=== PATIENT | female | born 1930 | race Hispanic/Latino ===

== ENCOUNTER 2017-05-13 09:44 | Inpatient (IN) | payer MEDICARE ==
[~2017-05-13] VITALS: Ht 152.4 cm; Wt 62.9 kg
[~2017-05-13 09:44] MED LIST: ALPR1TAB7 PO; AMLO5TAB2 PO; CHOL200026 PO; CITA20TA17 PO; ESOM20CA31 PO; GLIP5TAB11 PO; IBUP-2071 PO; LISI-613 PO; METF500T6 PO; METH2.5T6 PO; METO100T14 PO
[2017-05-13] MEDS ORDERED: MORPHINE SULFATE 8 MG/ML VIAL ONE (10:52)
[2017-05-13] MEDS ORDERED: ONDANSETRON HCL 4 MG/2 ML VIAL ONE (10:52)
[2017-05-13 11:36] LABS: BASOPHILS % (AUTO) 0.3 % (0.0-5.0); HEMATOCRIT 36.4 % (36-48); MEAN CORPUSCULAR HEMOGLOBIN 27.8 pg (27.0-33.0); MEAN CORPUSCULAR HGB CONC 32.3 g/dL (32.0-36.0); MONOCYTES % (AUTO) 0.9 % (3.0-13.0); NEUTROPHILS % (AUTO) 90.8 % (40.0-77.0); PLATELET COUNT (AUTO) 186 K/uL (130-400); RED BLOOD CELL COUNT(AUTO) 4.23 MIL/uL (4.00-5.50); RED CELL DISTRIBUTION WIDTH 16.3 % (11.0-15.5)
[2017-05-13 12:00] LABS: POTASSIUM 3.6 mmol/L (3.5-5.1)
[2017-05-13 12:17] LABS: APPEARANCE,URINE CLEAR (CLEAR); BILIRUBIN,URINE NEGATIVE (NEGATIVE); COLOR,URINE YELLOW (YELLOW); GLUCOSE, URINE (UA) 250 mg/dL (NEGATIVE); KETONES,URINE 5 mg/dL (NEGATIVE); LEUKOCYTE ESTERASE ,URINE NEGATIVE (NEGATIVE); NITRATE,URINE NEGATIVE (NEGATIVE); OCCULT BLOOD,URINE NEGATIVE (NEGATIVE); PH,URINE 7.5 (5.0-8.0); PROTEIN,URINE 30 (NEGATIVE); UROBILINOGEN,URINE 0.2 mg/dL (0.2-1.0)
[2017-05-13] MEDS ORDERED: MAG HYDROX/AL HYDROX/SIMETH ES 30 ML SUSP UDCUP PO PRN (12:30)
[2017-05-13] MEDS ORDERED: ACETAMINOPHEN 325 MG TAB PO PRN (12:30)
[2017-05-13] MEDS ORDERED: GUAIFENESIN-DM 200/20 MG 10 ML PO PRN (12:30)
[2017-05-13] MEDS ORDERED: ONDANSETRON HCL 4 MG/2 ML VIAL IV PRN (12:30)
[2017-05-13] MEDS ORDERED: LIDOCAINE HCL 1% 20 ML VIAL ONE (12:35)
[2017-05-13 13:21] LABS: BACTERIA,URINE None Seen /HPF (None Seen); RBC,URINE None Seen /HPF (0-1); SQUAMOUS EPITHELIAL CELL,UR Rare /LPF (0-2); WBC,URINE None Seen /HPF (0-1)
[2017-05-13 13:50] VITALS: BP 168/87
[2017-05-13] MEDS: SODIUM CHLORIDE 0.9% 1000ML 1,000 ML IV SCH (14:15)
[2017-05-13] MEDS ORDERED: METF500T6 PO (15:04)
[2017-05-13] MEDS ORDERED: METO75TA PO (15:04)
[2017-05-13] MEDS ORDERED: TAMS0.4C32 PO (15:04)
[2017-05-13] MEDS ORDERED: LORA10CA9 PO (15:04)
[2017-05-13] MEDS ORDERED: FAMO20TA8 PO (15:04)
[2017-05-13] MEDS ORDERED: FISH1CAP27 PO (15:04)
[2017-05-13] MEDS ORDERED: LISI40TA4 PO (15:04)
[2017-05-13] MEDS ORDERED: APIX2.5T PO (15:04)
[2017-05-13 16:00] VITALS: BP 163/97
[2017-05-13] MEDS: MORPHINE SULFATE 2 MG/ML 1ML SYG IV PRN (17:12)
[2017-05-13 20:00] VITALS: BP 165/86
[2017-05-13] MEDS: FAMOTIDINE/PF 20 MG/2 ML VIAL IV SCH (20:05)
[2017-05-13] MEDS ORDERED: POTASSIUM CHLORIDE 20MEQ/100ML 100 ML IV PRN (23:45)
[2017-05-13] MEDS ORDERED: POTASSIUM CHLORIDE 20 MEQ ERTAB PO PRN (23:45)
[2017-05-13] MEDS ORDERED: DEXTROSE 50%-WATER 50 ML DISP.SYRIN IV PRN (23:45)
[2017-05-13] MEDS ORDERED: GLUCAGON 1MG KIT 1 MG ML IM PRN (23:45)
[2017-05-13] MEDS ORDERED: LIDOCAINE HCL-MPF 1% 2ML VIAL IVP PRN (23:45)
[2017-05-14] VITALS (7 sets, daily range): BP systolic 147–196; BP diastolic 68–92
[2017-05-14] MEDS ORDERED: HYDRALAZINE HCL 20 MG/ML VIAL ONE (05:20)
[2017-05-14] MEDS: SODIUM CHLORIDE 0.9% 1000ML 1,000 ML IV SCH (05:22)
[2017-05-14] MEDS: MORPHINE SULFATE 2 MG/ML 1ML SYG IV PRN (05:25)
[2017-05-14 05:39] LABS: HEMATOCRIT 35.3 % (36-48); INR 1.07 (0.85-1.15); MEAN CORPUSCULAR HEMOGLOBIN 28.4 pg (27.0-33.0); MEAN CORPUSCULAR HGB CONC 33.1 g/dL (32.0-36.0); MEAN CORPUSCULAR VOLUME 85.8 fL (79-99); PLATELET COUNT (AUTO) 193 K/uL (130-400); POTASSIUM 3.8 mmol/L (3.5-5.1); PROTHROMBIN TIME 11.2 SEC (9.6-11.6); RED BLOOD CELL COUNT(AUTO) 4.12 MIL/uL (4.00-5.50)
[2017-05-14] MEDS: INSULIN HUMULIN R 100 UNIT/ML 3ML SQ SCH ×4 (06:22→20:36)
[2017-05-14] MEDS: FAMOTIDINE/PF 20 MG/2 ML VIAL IV SCH ×2 (08:13→20:43)
[2017-05-14] MEDS: ACETAMINOPHEN 325 MG TAB PO PRN (08:20)
[2017-05-14] MEDS: PNEUMOCOCCAL VACCINE POLYVALENT 0.5 ML/VIAL [PPV] IM SCH ×2 (08:21→15:15)
[2017-05-14] MEDS ORDERED: TRAMADOL HCL 50 MG TABLET PO PRN (09:15)
[2017-05-14] MEDS: METOPROLOL TARTRATE 50 MG TAB PO SCH ×2 (09:22→20:42)
[2017-05-14] MEDS: LISINOPRIL 40 MG TABLET PO SCH (09:41)
[2017-05-14] MEDS: METFORMIN HCL 500 MG TABLET PO SCH (09:41)
[2017-05-14] MEDS: FISH OIL 1000 MG/CAP PO SCH (09:41)
[2017-05-14] MEDS: CITALOPRAM 20 MG TABLET PO SCH (09:41)
[2017-05-14] MEDS: LORATADINE 10 MG TABLET PO SCH (09:41)
[2017-05-14] MEDS: KETOROLAC TROMETHAMINE 15MG/ML IV PRN (12:18)
[2017-05-14] MEDS: ALPRAZOLAM 1 MG TAB PO SCH (20:43)
[2017-05-15] VITALS (29 sets, daily range): BP systolic 111–190; BP diastolic 49–105
[2017-05-15] MEDS: HYDRALAZINE HCL 20 MG/ML VIAL IV PRN ×2 (00:13→23:48)
[2017-05-15 05:15] LABS: HEMATOCRIT 36.2 % (36-48); MEAN CORPUSCULAR HEMOGLOBIN 28.3 pg (27.0-33.0); MEAN CORPUSCULAR HGB CONC 33.1 g/dL (32.0-36.0); MEAN CORPUSCULAR VOLUME 85.6 fL (79-99); PLATELET COUNT (AUTO) 251 K/uL (130-400); RED BLOOD CELL COUNT(AUTO) 4.23 MIL/uL (4.00-5.50); RED CELL DISTRIBUTION WIDTH 16.1 % (11.0-15.5); WHITE BLOOD COUNT (AUTO) 10.6 K/uL (4.8-10.8)
[2017-05-15] MEDS: INSULIN HUMULIN R 100 UNIT/ML 3ML SQ SCH ×4 (06:00→21:47)
[2017-05-15 06:10] LABS: CREATININE 0.9 mg/dL (0.5-1.5); POTASSIUM 3.7 mmol/L (3.5-5.1)
[2017-05-15] MEDS: METOPROLOL TARTRATE 50 MG TAB PO SCH ×2 (07:59→20:26)
[2017-05-15] MEDS: FAMOTIDINE/PF 20 MG/2 ML VIAL IV SCH ×2 (07:59→20:25)
[2017-05-15] MEDS: CITALOPRAM 20 MG TABLET PO SCH (08:03)
[2017-05-15] MEDS: LISINOPRIL 40 MG TABLET PO SCH (08:04)
[2017-05-15] MEDS: FISH OIL 1000 MG/CAP PO SCH (08:04)
[2017-05-15] MEDS: METFORMIN HCL 500 MG TABLET PO SCH (08:04)
[2017-05-15] MEDS: LORATADINE 10 MG TABLET PO SCH (08:04)
[2017-05-15] MEDS: **HM** VIT D3 2000 UNITS PO SCH (08:04)
[2017-05-15] MEDS ORDERED: METFORMIN HCL 500 MG TABLET PO SCH (09:00)
[2017-05-15] MEDS ORDERED: LORATADINE 10 MG TABLET PO SCH (09:00)
[2017-05-15] MEDS ORDERED: FISH OIL 1000 MG/CAP PO SCH (09:00)
[2017-05-15] MEDS ORDERED: TAMSULOSIN HCL 0.4 MG CAP.ER.24H PO SCH (09:00)
[2017-05-15] MEDS ORDERED: LISINOPRIL 40 MG TABLET PO SCH (09:00)
[2017-05-15] MEDS ORDERED: CITALOPRAM 20 MG TABLET PO SCH (09:00)
[2017-05-15] MEDS ORDERED: LABETALOL 20 MG/4 ML DISP.SYRIN IV PRN (10:00)
[2017-05-15] MEDS: PNEUMOCOCCAL VACCINE POLYVALENT 0.5 ML/VIAL [PPV] IM SCH (12:22)
[2017-05-15] MEDS ORDERED: MIDAZOLAM HCL 1 MG/ML 2ML VIAL ONE (13:37)
[2017-05-15] MEDS ORDERED: CEFAZOLIN SODIUM 1 GM VIAL ONE (13:54)
[2017-05-15] MEDS ORDERED: PROPOFOL 10 MG/ML 20ML VIAL IV ONE ×3 (14:14→15:34)
[2017-05-15] MEDS ORDERED: PHENYLEPHRINE HCL 10 MG/ML 1ML VIAL IV ONE (14:31)
[2017-05-15] MEDS ORDERED: EPHEDRINE SULFATE 50 MG/ML AMPULE ONE (15:06)
[2017-05-15] MEDS ORDERED: ALBUMIN (HUMAN) 25% 50 ML IV ONE (15:15)
[2017-05-15] MEDS ORDERED: ROPIVACAINE 0.5% 5MG/ML 30ML IJ ONE (16:09)
[2017-05-15] MEDS: SODIUM CHLORIDE 0.9% 1000ML 1,000 ML IV ONE (16:30)
[2017-05-15] MEDS: CEFAZOLIN SODIUM 1 GM VIAL IVP SCH (20:25)
[2017-05-15] MEDS: ALPRAZOLAM 1 MG TAB PO SCH (21:00)
[2017-05-15] MEDS ORDERED: CEFAZOLIN 2GM / 50 ML 50 ML IV SCH (21:00)
[2017-05-15] MEDS: KETOROLAC TROMETHAMINE 15MG/ML IV PRN (21:50)
[2017-05-16] VITALS: BP 177/85
[2017-05-16 04:00] VITALS: BP 164/84
[2017-05-16 04:01] LABS: HEMATOCRIT 29.7 % (36-48); MEAN CORPUSCULAR HEMOGLOBIN 29.6 pg (27.0-33.0); MEAN CORPUSCULAR HGB CONC 34.5 g/dL (32.0-36.0); MEAN CORPUSCULAR VOLUME 85.9 fL (79-99); NUCLEATED RED BLOOD CELLS 0.2 % (0.0-0.19); PLATELET COUNT (AUTO) 227 K/uL (130-400); RED BLOOD CELL COUNT(AUTO) 3.46 MIL/uL (4.00-5.50); RED CELL DISTRIBUTION WIDTH 15.6 % (11.0-15.5); WHITE BLOOD COUNT (AUTO) 5.7 K/uL (4.8-10.8)
[2017-05-16 04:07] LABS: CREATININE 0.9 mg/dL (0.5-1.5); POTASSIUM 3.5 mmol/L (3.5-5.1)
[2017-05-16] MEDS: CEFAZOLIN SODIUM 1 GM VIAL IVP SCH ×4 (04:38→19:22)
[2017-05-16] MEDS: INSULIN HUMULIN R 100 UNIT/ML 3ML SQ SCH ×4 (06:15→20:40)
[2017-05-16 07:45] VITALS: BP 158/74
[2017-05-16] MEDS: **HM** VIT D3 2000 UNITS PO SCH (09:00)
[2017-05-16] MEDS: LORATADINE 10 MG TABLET PO SCH (09:22)
[2017-05-16] MEDS: FAMOTIDINE/PF 20 MG/2 ML VIAL IV SCH ×2 (09:22→20:34)
[2017-05-16] MEDS: METFORMIN HCL 500 MG TABLET PO SCH (09:23)
[2017-05-16] MEDS: CITALOPRAM 20 MG TABLET PO SCH (09:23)
[2017-05-16] MEDS: LISINOPRIL 40 MG TABLET PO SCH (09:23)
[2017-05-16] MEDS: FISH OIL 1000 MG/CAP PO SCH (09:23)
[2017-05-16] MEDS: METOPROLOL TARTRATE 50 MG TAB PO SCH ×2 (09:23→20:34)
[2017-05-16] MEDS: ENOXAPARIN SODIUM 40 MG/0.4 ML SYRINGE SQ SCH (09:24)
[2017-05-16 11:51] VITALS: BP 175/70
[2017-05-16] MEDS: ACETAMINOPHEN 325 MG TAB PO PRN (12:02)
[2017-05-16 16:11] VITALS: BP 176/79
[2017-05-16] MEDS: LACTULOSE 20 GM/30 ML UDCUP PO PRN (18:40)
[2017-05-16 20:00] VITALS: BP 167/83
[2017-05-16] MEDS: ALPRAZOLAM 1 MG TAB PO SCH (20:34)
[2017-05-17] VITALS: BP 135/98
[2017-05-17 04:00] VITALS: BP 179/89
[2017-05-17 05:10] LABS: CREATININE 0.8 mg/dL (0.5-1.5)
[2017-05-17 05:14] LABS: HEMATOCRIT 29.1 % (36-48); MEAN CORPUSCULAR HEMOGLOBIN 28.6 pg (27.0-33.0); MEAN CORPUSCULAR HGB CONC 33.2 g/dL (32.0-36.0); MEAN CORPUSCULAR VOLUME 86.2 fL (79-99); NUCLEATED RED BLOOD CELLS 0.1 % (0.0-0.19); PLATELET COUNT (AUTO) 201 K/uL (130-400); RED BLOOD CELL COUNT(AUTO) 3.38 MIL/uL (4.00-5.50); RED CELL DISTRIBUTION WIDTH 15.8 % (11.0-15.5); WHITE BLOOD COUNT (AUTO) 9.5 K/uL (4.8-10.8)
[2017-05-17] MEDS: POTASSIUM CHLORIDE 10% ELIXIR 20 MEQ/15 ML UDCUP PO PRN ×2 (05:23→08:36)
[2017-05-17] MEDS: INSULIN HUMULIN R 100 UNIT/ML 3ML SQ SCH ×2 (05:42→11:37)
[2017-05-17 07:44] VITALS: BP 182/89
[2017-05-17] MEDS: **HM** VIT D3 2000 UNITS PO SCH (08:33)
[2017-05-17] MEDS: LACTULOSE 20 GM/30 ML UDCUP PO PRN (08:33)
[2017-05-17] MEDS: FISH OIL 1000 MG/CAP PO SCH (08:33)
[2017-05-17] MEDS: METOPROLOL TARTRATE 50 MG TAB PO SCH (08:33)
[2017-05-17] MEDS: LORATADINE 10 MG TABLET PO SCH (08:33)
[2017-05-17] MEDS: FAMOTIDINE/PF 20 MG/2 ML VIAL IV SCH (08:33)
[2017-05-17] MEDS: CITALOPRAM 20 MG TABLET PO SCH (08:33)
[2017-05-17] MEDS: METFORMIN HCL 500 MG TABLET PO SCH (08:33)
[2017-05-17] MEDS: LISINOPRIL 40 MG TABLET PO SCH (08:35)
[2017-05-17] MEDS: ENOXAPARIN SODIUM 40 MG/0.4 ML SYRINGE SQ SCH (08:36)
[2017-05-17 11:40] VITALS: BP 146/76
[2017-05-17] MEDS: KETOROLAC TROMETHAMINE 15MG/ML IV PRN (12:44)
== END 2017-05-17 18:20 | DRG 469 ==
LOC: EDH 09:44 → EDHIP 12:17 → 4AH 13:23
PROVIDERS: ADMIT Family Medicine; ATTEND Family Medicine
PROC: 0SRS0JA Replacement of Left Hip Joint, Femoral Surface with Synthetic Substitute, Uncemented, Open Approach (ICD-10-PCS; principal; 2017-05-15 14:00)
PROC: 0PSTXZZ Reposition Right Finger Phalanx, External Approach (ICD-10-PCS; 2017-05-15 14:00)
PROC: 3E0234Z Introduction of Serum, Toxoid and Vaccine into Muscle, Percutaneous Approach (ICD-10-PCS; 2017-05-15 14:00)
DX: S62.614A Displaced fracture of proximal phalanx of right ring finger, initial encounter for closed fracture (principal); S72.002A Fracture of unspecified part of neck of left femur, initial encounter for closed fracture; E11.65 Type 2 diabetes mellitus with hyperglycemia; F03.90 Unspecified dementia, unspecified severity, without behavioral disturbance, psychotic disturbance, mood disturbance, and anxiety; E78.5 Hyperlipidemia, unspecified; F41.9 Anxiety disorder, unspecified; I10 Essential (primary) hypertension; I25.10 Atherosclerotic heart disease of native coronary artery without angina pectoris; M81.0 Age-related osteoporosis without current pathological fracture; I44.7 Left bundle-branch block, unspecified; Z96.652 Presence of left artificial knee joint; M19.90 Unspecified osteoarthritis, unspecified site; W01.0XXA Fall on same level from slipping, tripping and stumbling without subsequent striking against object, initial encounter; Y92.092 Bedroom in other non-institutional residence as the place of occurrence of the external cause; Y99.8 Other external cause status; Y93.89 Activity, other specified; Z79.01 Long term (current) use of anticoagulants; Z87.891 Personal history of nicotine dependence; Z90.710 Acquired absence of both cervix and uterus; Z91.81 History of falling; Z95.5 Presence of coronary angioplasty implant and graft; Z23 Encounter for immunization
CPT/HCPCS: 36415; 70450; 71045; 72125; 73140; 73502; 73560; 73600; 76000; 80048; 81001; 82948; 84484; 85025; 85027; 85610; 86850; 86900; 86901; 86922; 88305; 88311; 90732; 93005; 97039; A4218; C1776; J0360; J0690; J1650; J1815; J1885; J2250; J2270; J2370; J2405; J2704; J2795; J3490; J7030; P9047

== ENCOUNTER 2017-06-07 12:46 | Observation (INO) | payer MEDICARE ==
[~2017-06-07] VITALS: Ht 162.6 cm; Wt 58.8 kg
[~2017-06-07 12:46] MED LIST changes: -AMLO5TAB2 PO; +APIX2.5T PO; -ESOM20CA31 PO; +FAMO20TA8 PO; +FISH1CAP27 PO; -GLIP5TAB11 PO; -IBUP-2071 PO; -LISI-613 PO; +LISI40TA4 PO; +LORA10CA9 PO; -METO100T14 PO; +METO75TA PO; +TAMS0.4C32 PO
[2017-06-07] MEDS ORDERED: DEXTROSE 50%-WATER 50 ML DISP.SYRIN IV ONE ×3 (13:07→21:11)
[2017-06-07 13:52] LABS: BASOPHILS % (AUTO) 0.3 % (0.0-5.0); EOSINOPHILS % (AUTO) 0.3 % (0.0-8.0); HEMATOCRIT 31.1 % (36-48); LYMPHOCYTES % (AUTO) 7.1 % (21.0-51.0); MEAN CORPUSCULAR HGB CONC 33.7 g/dL (32.0-36.0); MEAN CORPUSCULAR VOLUME 86.3 fL (79-99); MONOCYTES % (AUTO) 4.1 % (3.0-13.0); NEUTROPHILS % (AUTO) 88.2 % (40.0-77.0); NUCLEATED RED BLOOD CELLS 0.1 % (0.0-0.19); PLATELET COUNT (AUTO) 196 K/uL (130-400); RED CELL DISTRIBUTION WIDTH 17.8 % (11.0-15.5); WHITE BLOOD COUNT (AUTO) 8.6 K/uL (4.8-10.8)
[2017-06-07 14:06] LABS: ALBUMIN 2.6 g/dL (3.5-5.0); BILIRUBIN,TOTAL 0.3 mg/dL (0.2-1.0); CREATININE 1.3 mg/dL (0.5-1.5); POTASSIUM 3.9 mmol/L (3.5-5.1); TOTAL PROTEIN, SERUM 7.4 g/dL (6.0-8.3)
[2017-06-07] MEDS ORDERED: DEXTROSE 5%-WATER 500 ML IV ONE (14:10)
[2017-06-07 14:20] LABS: APPEARANCE,URINE Clear (CLEAR); BILIRUBIN,URINE Negative (NEGATIVE); COLOR,URINE Yellow (YELLOW); GLUCOSE, URINE (UA) Negative (NEGATIVE); KETONES,URINE Negative (NEGATIVE); LEUKOCYTE ESTERASE ,URINE Negative (NEGATIVE); NITRATE,URINE Negative (NEGATIVE); OCCULT BLOOD,URINE Negative (NEGATIVE); PROTEIN,URINE Trace (NEGATIVE)
[2017-06-07 14:22] LABS: B-TYPE NATRIURETIC PEPTIDE 114 pg/mL (0-100)
[2017-06-07 14:44] LABS: BACTERIA,URINE Few /HPF (None Seen); MUCUS,URINE Few LPF (None Seen); RBC,URINE None Seen /HPF (0-1)
[2017-06-07] MEDS ORDERED: MAG HYDROX/AL HYDROX/SIMETH ES 30 ML SUSP UDCUP PO PRN (15:00)
[2017-06-07] MEDS ORDERED: LACTULOSE 20 GM/30 ML UDCUP PO PRN (15:00)
[2017-06-07] MEDS ORDERED: GUAIFENESIN-DM 200/20 MG 10 ML PO PRN (15:00)
[2017-06-07] MEDS ORDERED: ACETAMINOPHEN 325 MG TAB PO PRN ×2 (15:00)
[2017-06-07] MEDS ORDERED: ONDANSETRON HCL 4 MG/2 ML VIAL IV PRN (15:00)
[2017-06-07] MEDS ORDERED: ACETAMINOPHEN 325 MG TAB ONE (17:47)
[2017-06-07] MEDS ORDERED: IPRATROPIUM/ALBUTEROL SULFATE 3 ML SOLUTION IH ONE (19:34)
[2017-06-07] MEDS: IPRATROPIUM/ALBUTEROL SULFATE 3 ML SOLUTION IH SCH (20:02)
[2017-06-07] MEDS ORDERED: FAMOTIDINE/PF 20 MG/2 ML VIAL IV SCH (21:00)
[2017-06-07 21:25] VITALS: BP 125/55
[2017-06-07] MEDS ORDERED: ALPRAZOLAM 0.5 MG TABLET PO PRN (23:30)
[2017-06-07 23:38] VITALS: BP 108/52
[2017-06-07] MEDS ORDERED: LORAZEPAM 0.5 MG TABLET ONE (23:43)
[2017-06-07] MEDS ORDERED: BENZONATATE 100 MG CAPSULE PO PRN (23:45)
[2017-06-07] MEDS ORDERED: DEXTROSE 50%-WATER 50 ML DISP.SYRIN IV PRN (23:45)
[2017-06-07] MEDS ORDERED: GLUCAGON 1MG KIT 1 MG ML IM PRN (23:45)
[2017-06-07] MEDS ORDERED: ALPRAZOLAM 0.5 MG TABLET ONE (23:48)
[2017-06-08] MEDS: IPRATROPIUM/ALBUTEROL SULFATE 3 ML SOLUTION IH SCH ×2 (00:09→06:15)
[2017-06-08] MEDS ORDERED: DEXTROSE 50%-WATER 50 ML DISP.SYRIN IV ONE (00:33)
[2017-06-08 03:32] VITALS: BP 109/51
[2017-06-08 04:03] LABS: HEMOGLOBIN A1C 6.9 % (4.0-6.0)
[2017-06-08 04:21] LABS: CREATININE 1.4 mg/dL (0.5-1.5); THYROID STIMULATING HORMONE 3.61 uIU/mL (0.36-3.74)
[2017-06-08 08:00] VITALS: BP 139/66
[2017-06-08] MEDS ORDERED: FUROSEMIDE 10 MG/ML 2ML VIAL IV SCH (09:00)
[2017-06-08] MEDS ORDERED: CHOLECALCIFEROL 2000 UNIT PO SCH (09:00)
[2017-06-08] MEDS ORDERED: APIXABAN 2.5 MG TABLET PO SCH (09:00)
[2017-06-08] MEDS: LORATADINE 10 MG TABLET PO SCH (09:14)
[2017-06-08] MEDS: CITALOPRAM 20 MG TABLET PO SCH (09:32)
[2017-06-08] MEDS: FAMOTIDINE 20MG TAB 20 MG TAB PO SCH (09:32)
[2017-06-08] MEDS: TAMSULOSIN HCL 0.4 MG CAP.ER.24H PO SCH (09:33)
[2017-06-08] MEDS: LISINOPRIL 40 MG TABLET PO SCH (09:33)
[2017-06-08] MEDS: METOPROLOL TARTRATE 25 MG TAB PO SCH ×2 (09:34→21:00)
[2017-06-08] MEDS: IPRATROPIUM 0.5 MG/2.5 ML INH IH SCH ×3 (10:57→23:43)
[2017-06-08 12:20] VITALS: BP 126/64
[2017-06-08 16:00] VITALS: BP_SYST 115; BP_SYST 122; BP_DIAS 66; BP_DIAS 70
[2017-06-08 19:30] VITALS: BP 153/73
[2017-06-08] MEDS ORDERED: ALPRAZOLAM 1 MG TAB PO SCH (21:00)
[2017-06-08 23:50] VITALS: BP 137/64
[2017-06-09 03:30] VITALS: BP 131/57
[2017-06-09 04:29] LABS: CREATININE 1.2 mg/dL (0.5-1.5); POTASSIUM 4.3 mmol/L (3.5-5.1)
[2017-06-09] MEDS: IPRATROPIUM 0.5 MG/2.5 ML INH IH SCH ×2 (06:27→11:06)
[2017-06-09 08:01] VITALS: BP 117/64
[2017-06-09] MEDS: LORATADINE 10 MG TABLET PO SCH (08:43)
[2017-06-09] MEDS: METOPROLOL TARTRATE 25 MG TAB PO SCH (08:43)
[2017-06-09] MEDS: TAMSULOSIN HCL 0.4 MG CAP.ER.24H PO SCH (08:43)
[2017-06-09] MEDS: LISINOPRIL 40 MG TABLET PO SCH (08:44)
[2017-06-09] MEDS: FAMOTIDINE 20MG TAB 20 MG TAB PO SCH (08:44)
[2017-06-09] MEDS: CITALOPRAM 20 MG TABLET PO SCH (08:44)
[2017-06-09 11:38] VITALS: BP 113/59
== END 2017-06-09 14:50 ==
LOC: EDH 12:46 → EDHIP 14:52 → 2AH 21:03
PROVIDERS: ADMIT Family Medicine; ATTEND Family Medicine
DX: E11.649 Type 2 diabetes mellitus with hypoglycemia without coma (principal); I25.10 Atherosclerotic heart disease of native coronary artery without angina pectoris; I10 Essential (primary) hypertension; M19.90 Unspecified osteoarthritis, unspecified site; D64.9 Anemia, unspecified; E78.5 Hyperlipidemia, unspecified; E87.1 Hypo-osmolality and hyponatremia; Z91.81 History of falling; Z79.01 Long term (current) use of anticoagulants; Z95.5 Presence of coronary angioplasty implant and graft; Z96.649 Presence of unspecified artificial hip joint
CPT/HCPCS: 36415 ×2; 71045 ×2; 80048; 80053; 81001; 82948 ×21; 83036; 83605 ×2; 83880 ×2; 84443; 84484; 85025; 87040 ×2; 87804 ×2; 94640 ×8; 94664; 96374; 96375; 96376; 97116 ×2; 97161; 99285; G0378 ×48; G8978; G8979; G8980; G8981; G8982; G8983; J1940; J2405; J3490; J7060; J7070 ×5

== ENCOUNTER 2017-06-12 15:00 | Inpatient (IN) | payer MEDICARE ==
[~2017-06-12] VITALS: Ht 162.6 cm; Wt 59.5 kg
[2017-06-12] MEDS ORDERED: IPRATROPIUM/ALBUTEROL SULFATE 3 ML SOLUTION IH ONE (15:17)
[2017-06-12] MEDS ORDERED: METHYLPREDNISOLONE SOD SUCC 125MG/2ML VIAL ONE (15:29)
[2017-06-12] MEDS ORDERED: ACETAMINOPHEN 325 MG TAB ONE (15:29)
[2017-06-12 15:33] LABS: BASOPHILS % (AUTO) 0.1 % (0.0-5.0); LYMPHOCYTES % (AUTO) 5.1 % (21.0-51.0); MEAN CORPUSCULAR HEMOGLOBIN 28.8 pg (27.0-33.0); MEAN CORPUSCULAR HGB CONC 33.3 g/dL (32.0-36.0); MEAN CORPUSCULAR VOLUME 86.4 fL (79-99); MONOCYTES % (AUTO) 2.6 % (3.0-13.0); NEUTROPHILS % (AUTO) 92.2 % (40.0-77.0); NUCLEATED RED BLOOD CELLS 0.1 % (0.0-0.19); PLATELET COUNT (AUTO) 106 K/uL (130-400); RED BLOOD CELL COUNT(AUTO) 3.94 MIL/uL (4.00-5.50); RED CELL DISTRIBUTION WIDTH 18.1 % (11.0-15.5); WHITE BLOOD COUNT (AUTO) 6.3 K/uL (4.8-10.8)
[2017-06-12 15:44] LABS: CARBON DIOXIDE 20 mmol/L (21-32); CREATININE 1.2 mg/dL (0.5-1.5); GLOMERULAR FILTR. RATE CALC 45 mL/min (>60); GLUCOSE,RANDOM 387 mg/dL (70-105); INR 1.15 (0.85-1.15); PARTIAL THROMBOPLASTIN TIME 33.4 SEC (26.3-35.5); POTASSIUM 4.4 mmol/L (3.5-5.1); SODIUM SERUM 127 mmol/L (136-145); UREA NITROGEN, BLOOD 21 mg/dL (7-18)
[2017-06-12 15:47] LABS: CHLORIDE 90 mmol/L (101-111)
[2017-06-12 15:55] LABS: ALANINE AMINOTRANSFERASE 16 U/L (12-78); ALBUMIN 2.9 g/dL (3.5-5.0); ASPARTATE AMINOTRANSFERASE 24 U/L (10-37); BILIRUBIN,TOTAL 1.1 mg/dL (0.2-1.0); CREATINE KINASE MB < 0.5 ng/mL (0.5-3.6); CREATINE KINASE, TOTAL 26 U/L (21-232); MYOGLOBIN 30 ng/mL (10-92); TOTAL PROTEIN, SERUM 8.3 g/dL (6.0-8.3); TROPONIN I < 0.04 ng/mL (0.00-0.06)
[2017-06-12 16:45] LABS: APPEARANCE,URINE Turbid (CLEAR); BILIRUBIN,URINE Negative (NEGATIVE); COLOR,URINE Dark Yellow (YELLOW); GLUCOSE, URINE (UA) >=1000 mg/dL (NEGATIVE); KETONES,URINE 40 mg/dL (NEGATIVE); LEUKOCYTE ESTERASE ,URINE Moderate (NEGATIVE); NITRATE,URINE Negative (NEGATIVE); OCCULT BLOOD,URINE Small (NEGATIVE); PH,URINE 5.5 (5.0-8.0); PROTEIN,URINE 300 (NEGATIVE)
[2017-06-12 17:04] LABS: BACTERIA,URINE Moderate /HPF (None Seen); RBC,URINE None Seen /HPF (0-1); SQUAMOUS EPITHELIAL CELL,UR None Seen /LPF (0-2); WBC,URINE >100 /HPF (0-1)
[2017-06-12] MEDS ORDERED: VANCOMYCIN 1GM+NS 250ML 250 ML IV ONE (18:25)
[2017-06-12] MEDS ORDERED: MEROPENEM 1 GM VIAL ONE (18:25)
[2017-06-12] MEDS ORDERED: SODIUM CHLORIDE 0.9% 1000ML 1,000 ML IV ONE ×2 (18:25→23:04)
[2017-06-12] MEDS ORDERED: INSULIN HUMULIN R 100 UNIT/ML 3ML ONE (18:26)
[2017-06-12 18:59] LABS: ABG BASE EXCESS -8.8 mmol/L (-2.0-3.0); ABG HCO3 17.4 mmol/L (21.0-28.0); ABG OXYGEN SATURATION 99.8 % (95.0-99.0); ABG PCO2 39 mmHg (32-45)
[2017-06-12 20:50] VITALS: BP 140/71
[2017-06-12] MEDS ORDERED: ACETAMINOPHEN 325 MG TAB PO PRN (21:15)
[2017-06-12] MEDS ORDERED: LEVOFLOXACIN 500 MG/D5W 100 ML 100 ML IV SCH (21:15)
[2017-06-12] MEDS ORDERED: ONDANSETRON HCL 4 MG/2 ML VIAL IVP PRN (21:15)
[2017-06-12 21:52] LABS: ABG BASE EXCESS -7.7 mmol/L (-2.0-3.0); ABG OXYGEN SATURATION 94.5 % (95.0-99.0); ABG PCO2 38 mmHg (32-45)
[2017-06-12] MEDS: IPRATROPIUM/ALBUTEROL SULFATE 3 ML SOLUTION IH SCH (22:57)
[2017-06-12] MEDS: METHYLPREDNISOLONE SOD SUCC 125MG/2ML VIAL IVP SCH (23:07)
[2017-06-12] MEDS ORDERED: BENZ-39 PO (23:44)
[2017-06-12] MEDS ORDERED: MAGN400O17 PO (23:44)
[2017-06-12] MEDS ORDERED: BISA10SU61 RC (23:44)
[2017-06-12] MEDS ORDERED: MULT-248 PO (23:44)
[2017-06-12] MEDS ORDERED: [UNRECOGNIZED DRUG - CODE] PO (23:44)
[2017-06-12] MEDS ORDERED: ONDA4SOL2 PO (23:44)
[2017-06-12] MEDS ORDERED: CITA-107 PO (23:44)
[2017-06-13] VITALS (7 sets, daily range): BP systolic 118–140; BP diastolic 61–73
[2017-06-13] MEDS: SODIUM CHLORIDE 0.9% 1000ML 1,000 ML IV SCH ×2 (00:30→10:30)
[2017-06-13] MEDS ORDERED: LACTULOSE 20 GM/30 ML UDCUP PO PRN (02:30)
[2017-06-13] MEDS ORDERED: HYDRALAZINE HCL 20 MG/ML VIAL IV PRN (02:30)
[2017-06-13] MEDS ORDERED: POTASSIUM CHLORIDE 20MEQ/100ML 100 ML IV PRN (02:30)
[2017-06-13] MEDS ORDERED: LIDOCAINE HCL-MPF 1% 2ML VIAL IVP PRN (02:30)
[2017-06-13] MEDS ORDERED: ACETAMINOPHEN 325 MG TAB PO PRN (02:30)
[2017-06-13] MEDS ORDERED: POTASSIUM CHLORIDE 10% ELIXIR 20 MEQ/15 ML UDCUP PO PRN (02:30)
[2017-06-13] MEDS ORDERED: POTASSIUM CHLORIDE 20 MEQ ERTAB PO PRN (02:30)
[2017-06-13] MEDS ORDERED: BENZONATATE 100 MG CAPSULE PO PRN (03:15)
[2017-06-13] MEDS ORDERED: ONDANSETRON ODT 4 MG TAB PO PRN (03:15)
[2017-06-13 04:59] LABS: BASOPHILS % (AUTO) 0.1 % (0.0-5.0); HEMATOCRIT 28.6 % (36-48); LYMPHOCYTES % (AUTO) 3.3 % (21.0-51.0); MEAN CORPUSCULAR HGB CONC 32.8 g/dL (32.0-36.0); MEAN CORPUSCULAR VOLUME 88.4 fL (79-99); MONOCYTES % (AUTO) 2.5 % (3.0-13.0); NEUTROPHILS % (AUTO) 94.1 % (40.0-77.0); NUCLEATED RED BLOOD CELLS 0.2 % (0.0-0.19); PLATELET COUNT (AUTO) 56 K/uL (130-400); RED BLOOD CELL COUNT(AUTO) 3.24 MIL/uL (4.00-5.50); RED CELL DISTRIBUTION WIDTH 18.4 % (11.0-15.5); WHITE BLOOD COUNT (AUTO) 10.3 K/uL (4.8-10.8)
[2017-06-13 05:30] LABS: HEMOGLOBIN A1C 7.4 % (4.0-6.0)
[2017-06-13 05:31] LABS: B-TYPE NATRIURETIC PEPTIDE 2020 pg/mL (0-100)
[2017-06-13] MEDS: METHYLPREDNISOLONE SOD SUCC 125MG/2ML VIAL IVP SCH ×2 (05:48→20:32)
[2017-06-13 05:51] LABS: CREATININE 1.2 mg/dL (0.5-1.5); POTASSIUM 3.8 mmol/L (3.5-5.1); TROPONIN I 0.48 ng/mL (0.00-0.06)
[2017-06-13] MEDS: INSULIN R PO SS1 SQ SCH ×2 (06:49→13:53)
[2017-06-13] MEDS: IPRATROPIUM/ALBUTEROL SULFATE 3 ML SOLUTION IH SCH ×3 (07:09→18:26)
[2017-06-13] MEDS ORDERED: METFORMIN HCL 500 MG TABLET PO SCH (08:00)
[2017-06-13] MEDS: ***HM***(Cholecalciferol (Vitamin D3) (Vitamin D3) 2,000 UNIT) PO SCH (09:00)
[2017-06-13] MEDS ORDERED: INSULIN NPH 100 UNIT/ML 3ML SQ SCH (09:15)
[2017-06-13] MEDS ORDERED: VANCOMYCIN 1GM+NS 250ML 250 ML IV SCH (09:43)
[2017-06-13] MEDS ORDERED: COMPOUND IV REFRIGERATED 1 EACH IVSOLN MISC PRN (09:45)
[2017-06-13] MEDS: CEFEPIME HCL 1 GM VIAL IVP SCH ×2 (12:57→20:31)
[2017-06-13] MEDS: NYSTATIN 100000 UNIT/ML 5ML UDCUP PO SCH ×3 (12:58→20:32)
[2017-06-13] MEDS: LORATADINE 10 MG TABLET PO SCH (12:59)
[2017-06-13] MEDS: LISINOPRIL 40 MG TABLET PO SCH (12:59)
[2017-06-13] MEDS: TAMSULOSIN HCL 0.4 MG CAP.ER.24H PO SCH (13:00)
[2017-06-13] MEDS: FISH OIL 1000 MG/CAP PO SCH (13:00)
[2017-06-13] MEDS: METOPROLOL TARTRATE 25 MG TAB PO SCH ×2 (13:00→20:33)
[2017-06-13] MEDS ORDERED: ZOSYN 3.375GM+NS 50ML 50 ML IV SCH (13:00)
[2017-06-13] MEDS: MULTIVITAMIN WITH MINERALS TABLET PO SCH (13:00)
[2017-06-13] MEDS: ASPIRIN 81MG TAB.CHEW PO SCH (13:01)
[2017-06-13] MEDS: FAMOTIDINE 20MG TAB 20 MG TAB PO SCH (13:01)
[2017-06-13] MEDS: CITALOPRAM 20 MG TABLET PO SCH (13:01)
[2017-06-13] MEDS: ACETYLCYSTEINE 20% 200MG/ML 4ML VIAL IH SCH (18:26)
[2017-06-13] MEDS: FLUCONAZOLE 100 MG TAB PO SCH (18:32)
[2017-06-13] MEDS: LEVOFLOXACIN 250 MG/D5W 50ML 50 ML IVPB SCH (20:32)
[2017-06-13] MEDS: ALPRAZOLAM 1 MG TAB PO SCH (20:32)
[2017-06-13] MEDS: OSELTAMIVIR PHOSPHATE 75 MG CAP PO SCH (20:33)
[2017-06-13] MEDS ORDERED: METHYLPREDNISOLONE SOD SUCC 125MG/2ML VIAL IVP SCH (21:00)
[2017-06-13] MEDS: BUDESONIDE 0.5 MG/2 ML INH IH SCH (21:12)
[2017-06-14] MEDS: ACETYLCYSTEINE 20% 200MG/ML 4ML VIAL IH SCH ×4 (00:11→23:40)
[2017-06-14] MEDS: IPRATROPIUM/ALBUTEROL SULFATE 3 ML SOLUTION IH SCH ×5 (00:11→23:40)
[2017-06-14 03:57] VITALS: BP 153/77
[2017-06-14 04:43] LABS: HEMATOCRIT 24.7 % (36-48); MEAN CORPUSCULAR HEMOGLOBIN 30.2 pg (27.0-33.0); MEAN CORPUSCULAR HGB CONC 34.5 g/dL (32.0-36.0); MEAN CORPUSCULAR VOLUME 87.6 fL (79-99); PLATELET COUNT (AUTO) 43 K/uL (130-400); RED BLOOD CELL COUNT(AUTO) 2.81 MIL/uL (4.00-5.50); RED CELL DISTRIBUTION WIDTH 18.8 % (11.0-15.5); WHITE BLOOD COUNT (AUTO) 8.1 K/uL (4.8-10.8)
[2017-06-14 05:05] LABS: BAND NEUTROPHILS % (MANUAL) 21 % (0-2); LYMPHOCYTES % (MANUAL) 10 % (22-44); MAN.DIFF COMMENT-IMPRESSION MANUAL DIFFERENTIAL; MONOCYTES % (MANUAL) 4 % (2-9); PLATELET MORPHOLOGY COMMENT MARKED DECREASED; SEGMENTED NEUTROPHILS % 65 % (40-70)
[2017-06-14 05:11] LABS: ABG BASE EXCESS -4.5 mmol/L (-2.0-3.0); ABG HCO3 19.6 mmol/L (21.0-28.0); ABG OXYGEN SATURATION 98.1 % (95.0-99.0); ABG PCO2 34 mmHg (32-45)
[2017-06-14 05:24] LABS: BILIRUBIN,TOTAL 0.5 mg/dL (0.2-1.0); CREATININE 1.1 mg/dL (0.5-1.5); MAGNESIUM 1.5 mg/dL (1.80-2.40); PHOSPHORUS 2.3 mg/dL (2.5-4.9); POTASSIUM 3.6 mmol/L (3.5-5.1); THYROID STIMULATING HORMONE 0.93 uIU/mL (0.36-3.74); TOTAL PROTEIN, SERUM 6.3 g/dL (6.0-8.3)
[2017-06-14 05:43] LABS: B-TYPE NATRIURETIC PEPTIDE 274 pg/mL (0-100)
[2017-06-14 06:22] LABS: HIGH SENSITIVITY CRP 159.56 mg/L (0.0-3.0)
[2017-06-14] MEDS: BUDESONIDE 0.5 MG/2 ML INH IH SCH ×2 (06:41→18:52)
[2017-06-14] MEDS: INSULIN NPH 100 UNIT/ML 3ML SQ SCH ×2 (07:30→16:29)
[2017-06-14] MEDS: METHYLPREDNISOLONE SOD SUCC 125MG/2ML VIAL IVP SCH ×2 (08:04→21:04)
[2017-06-14] MEDS: NYSTATIN 100000 UNIT/ML 5ML UDCUP PO SCH ×6 (08:04→21:05)
[2017-06-14] MEDS: CEFEPIME HCL 1 GM VIAL IVP SCH ×2 (08:04→21:03)
[2017-06-14] MEDS: FISH OIL 1000 MG/CAP PO SCH (08:05)
[2017-06-14] MEDS: LISINOPRIL 40 MG TABLET PO SCH (08:06)
[2017-06-14] MEDS: OSELTAMIVIR PHOSPHATE 75 MG CAP PO SCH ×2 (08:06→21:05)
[2017-06-14] MEDS: FAMOTIDINE 20MG TAB 20 MG TAB PO SCH (08:06)
[2017-06-14] MEDS: CITALOPRAM 20 MG TABLET PO SCH (08:06)
[2017-06-14] MEDS: METOPROLOL TARTRATE 25 MG TAB PO SCH ×2 (08:06→21:06)
[2017-06-14] MEDS: ASPIRIN 81MG TAB.CHEW PO SCH (08:06)
[2017-06-14] MEDS: TAMSULOSIN HCL 0.4 MG CAP.ER.24H PO SCH (08:06)
[2017-06-14] MEDS: MULTIVITAMIN WITH MINERALS TABLET PO SCH (08:06)
[2017-06-14] MEDS: VANCOMYCIN 750MG + NS 250 ML IV SCH ×2 (08:07)
[2017-06-14] MEDS: ***HM***(Cholecalciferol (Vitamin D3) (Vitamin D3) 2,000 UNIT) PO SCH (08:07)
[2017-06-14] MEDS: LORATADINE 10 MG TABLET PO SCH (08:07)
[2017-06-14 08:08] VITALS: BP 150/73
[2017-06-14] MEDS ORDERED: METHOTREXATE SODIUM 2.5 MG TABLET PO SCH (09:00)
[2017-06-14] MEDS ORDERED: MAGNESIUM 2GM PREMIX 50ML 50 ML IV SCH ×2 (09:00→13:30)
[2017-06-14 11:21] VITALS: BP 135/63
[2017-06-14 15:54] VITALS: BP 143/78
[2017-06-14] MEDS: FLUCONAZOLE 100 MG TAB PO SCH (16:28)
[2017-06-14 19:14] VITALS: BP 150/70
[2017-06-14] MEDS: ALPRAZOLAM 1 MG TAB PO SCH (21:05)
[2017-06-14] MEDS: LEVOFLOXACIN 250 MG/D5W 50ML 50 ML IVPB SCH (21:05)
[2017-06-14 23:20] VITALS: BP 156/90
[2017-06-15 03:42] VITALS: BP 158/86
[2017-06-15 04:34] LABS: BASOPHILS % (AUTO) 0.1 % (0.0-5.0); HEMATOCRIT 24.6 % (36-48); LYMPHOCYTES % (AUTO) 7.3 % (21.0-51.0); MEAN CORPUSCULAR HEMOGLOBIN 29.5 pg (27.0-33.0); MEAN CORPUSCULAR HGB CONC 33.5 g/dL (32.0-36.0); MEAN CORPUSCULAR VOLUME 88.1 fL (79-99); MONOCYTES % (AUTO) 15.8 % (3.0-13.0); NEUTROPHILS % (AUTO) 76.8 % (40.0-77.0); NUCLEATED RED BLOOD CELLS 0.2 % (0.0-0.19); PLATELET COUNT (AUTO) 43 K/uL (130-400); RED BLOOD CELL COUNT(AUTO) 2.79 MIL/uL (4.00-5.50); RED CELL DISTRIBUTION WIDTH 18.7 % (11.0-15.5); WHITE BLOOD COUNT (AUTO) 5.7 K/uL (4.8-10.8)
[2017-06-15 04:51] LABS: CREATININE 1.2 mg/dL (0.5-1.5)
[2017-06-15 05:20] LABS: B-TYPE NATRIURETIC PEPTIDE 954 pg/mL (0-100)
[2017-06-15] MEDS: ACETYLCYSTEINE 20% 200MG/ML 4ML VIAL IH SCH (06:11)
[2017-06-15] MEDS: IPRATROPIUM/ALBUTEROL SULFATE 3 ML SOLUTION IH SCH ×4 (06:11→23:47)
[2017-06-15] MEDS: BUDESONIDE 0.5 MG/2 ML INH IH SCH ×2 (06:11→19:13)
[2017-06-15] MEDS: INSULIN NPH 100 UNIT/ML 3ML SQ SCH ×2 (06:17→17:02)
[2017-06-15] MEDS: INSULIN HUMULIN R 100 UNIT/ML 3ML SQ SCH ×3 (06:29→17:04)
[2017-06-15 08:00] VITALS: BP 150/73
[2017-06-15] MEDS: ***HM***(Cholecalciferol (Vitamin D3) (Vitamin D3) 2,000 UNIT) PO SCH (09:00)
[2017-06-15] MEDS: NYSTATIN 100000 UNIT/ML 5ML UDCUP PO SCH ×6 (09:00→20:37)
[2017-06-15] MEDS: CEFEPIME HCL 1 GM VIAL IVP SCH ×2 (09:52→20:36)
[2017-06-15] MEDS: MULTIVITAMIN WITH MINERALS TABLET PO SCH (09:53)
[2017-06-15] MEDS: LORATADINE 10 MG TABLET PO SCH (09:53)
[2017-06-15] MEDS: TAMSULOSIN HCL 0.4 MG CAP.ER.24H PO SCH (09:53)
[2017-06-15] MEDS: FAMOTIDINE 20MG TAB 20 MG TAB PO SCH (09:53)
[2017-06-15] MEDS: CITALOPRAM 20 MG TABLET PO SCH (09:53)
[2017-06-15] MEDS: ASPIRIN 81MG TAB.CHEW PO SCH (09:53)
[2017-06-15] MEDS: OSELTAMIVIR PHOSPHATE 75 MG CAP PO SCH ×2 (09:53→20:36)
[2017-06-15] MEDS: FISH OIL 1000 MG/CAP PO SCH (09:53)
[2017-06-15] MEDS: LISINOPRIL 40 MG TABLET PO SCH (09:54)
[2017-06-15] MEDS: METOPROLOL TARTRATE 25 MG TAB PO SCH ×2 (09:54→20:37)
[2017-06-15] MEDS: VANCOMYCIN 750MG + NS 250 ML IV SCH ×2 (09:55)
[2017-06-15 11:00] VITALS: BP 151/85
[2017-06-15] MEDS: METHYLPREDNISOLONE SOD SUCC 125MG/2ML VIAL IVP SCH ×2 (12:03→20:36)
[2017-06-15] MEDS: FUROSEMIDE 10 MG/ML 2ML VIAL IV SCH ×2 (13:02→16:57)
[2017-06-15 16:00] VITALS: BP 145/73
[2017-06-15] MEDS: FLUCONAZOLE 100 MG TAB PO SCH (16:57)
[2017-06-15 20:00] VITALS: BP 178/88
[2017-06-15] MEDS: LEVOFLOXACIN 250 MG/D5W 50ML 50 ML IVPB SCH (20:37)
[2017-06-15] MEDS: ALPRAZOLAM 1 MG TAB PO SCH (20:37)
[2017-06-16] VITALS: BP 168/74
[2017-06-16 04:00] VITALS: BP 142/76
[2017-06-16] MEDS: IPRATROPIUM/ALBUTEROL SULFATE 3 ML SOLUTION IH SCH ×3 (06:04→18:14)
[2017-06-16] MEDS: INSULIN NPH 100 UNIT/ML 3ML SQ SCH (06:21)
[2017-06-16] MEDS: BUDESONIDE 0.5 MG/2 ML INH IH SCH ×2 (06:28→18:14)
[2017-06-16] MEDS: INSULIN HUMULIN R 100 UNIT/ML 3ML SQ SCH ×3 (07:30→17:45)
[2017-06-16 08:00] VITALS: BP 146/69
[2017-06-16] MEDS: ***HM***(Cholecalciferol (Vitamin D3) (Vitamin D3) 2,000 UNIT) PO SCH (09:00)
[2017-06-16] MEDS: FUROSEMIDE 10 MG/ML 2ML VIAL IV SCH ×2 (09:44→17:43)
[2017-06-16] MEDS: CEFEPIME HCL 1 GM VIAL IVP SCH ×2 (09:44→20:29)
[2017-06-16] MEDS: ASPIRIN 81MG TAB.CHEW PO SCH (09:45)
[2017-06-16] MEDS: LORATADINE 10 MG TABLET PO SCH (09:45)
[2017-06-16] MEDS: MULTIVITAMIN WITH MINERALS TABLET PO SCH (09:45)
[2017-06-16] MEDS: CITALOPRAM 20 MG TABLET PO SCH (09:45)
[2017-06-16] MEDS: METOPROLOL TARTRATE 25 MG TAB PO SCH ×2 (09:45→20:32)
[2017-06-16] MEDS: METHYLPREDNISOLONE SOD SUCC 125MG/2ML VIAL IVP SCH ×2 (09:45→20:30)
[2017-06-16] MEDS: NYSTATIN 100000 UNIT/ML 5ML UDCUP PO SCH ×4 (09:45→20:33)
[2017-06-16] MEDS: OSELTAMIVIR PHOSPHATE 75 MG CAP PO SCH ×2 (09:45→20:29)
[2017-06-16] MEDS: FISH OIL 1000 MG/CAP PO SCH (09:45)
[2017-06-16] MEDS: TAMSULOSIN HCL 0.4 MG CAP.ER.24H PO SCH (09:45)
[2017-06-16] MEDS: LISINOPRIL 40 MG TABLET PO SCH (09:46)
[2017-06-16] MEDS: FAMOTIDINE 20MG TAB 20 MG TAB PO SCH (09:46)
[2017-06-16] MEDS: VANCOMYCIN 750MG + NS 250 ML IV SCH ×2 (09:46)
[2017-06-16 11:00] VITALS: BP 132/72
[2017-06-16 16:00] VITALS: BP 152/77
[2017-06-16] MEDS ORDERED: INSULIN NPH 100 UNIT/ML 3ML SQ SCH ×2 (16:30)
[2017-06-16] MEDS: FLUCONAZOLE 100 MG TAB PO SCH (17:43)
[2017-06-16 20:00] VITALS: BP 153/80
[2017-06-16] MEDS: ALPRAZOLAM 1 MG TAB PO SCH (20:29)
[2017-06-16] MEDS: LEVOFLOXACIN 250 MG/D5W 50ML 50 ML IVPB SCH (20:33)
== END 2017-06-16 21:30 | DRG 871 ==
LOC: EDH 15:00 → EDHIP 17:55 → 3DH 20:22
PROVIDERS: ADMIT Internal Medicine; ATTEND Internal Medicine
PROC: 5A09357 Assistance with Respiratory Ventilation, Less than 24 Consecutive Hours, Continuous Positive Airway Pressure (ICD-10-PCS; principal; 2017-06-12)
PROC: 5A09357 Assistance with Respiratory Ventilation, Less than 24 Consecutive Hours, Continuous Positive Airway Pressure (ICD-10-PCS; 2017-06-13)
PROC: 5A09357 Assistance with Respiratory Ventilation, Less than 24 Consecutive Hours, Continuous Positive Airway Pressure (ICD-10-PCS; 2017-06-15)
PROC: 5A09357 Assistance with Respiratory Ventilation, Less than 24 Consecutive Hours, Continuous Positive Airway Pressure (ICD-10-PCS; 2017-06-16)
DX: A41.9 Sepsis, unspecified organism (principal); I50.33 Acute on chronic diastolic (congestive) heart failure; J96.01 Acute respiratory failure with hypoxia; N17.9 Acute kidney failure, unspecified; J18.9 Pneumonia, unspecified organism; D69.6 Thrombocytopenia, unspecified; E11.22 Type 2 diabetes mellitus with diabetic chronic kidney disease; E11.65 Type 2 diabetes mellitus with hyperglycemia; B37.0 Candidal stomatitis; E87.2 Acidosis; I24.9 Acute ischemic heart disease, unspecified; E87.1 Hypo-osmolality and hyponatremia; N39.0 Urinary tract infection, site not specified; I13.0 Hypertensive heart and chronic kidney disease with heart failure and stage 1 through stage 4 chronic kidney disease, or unspecified chronic kidney disease; J44.0 Chronic obstructive pulmonary disease with (acute) lower respiratory infection; J44.1 Chronic obstructive pulmonary disease with (acute) exacerbation; Z66 Do not resuscitate; E86.0 Dehydration; Y95 Nosocomial condition; M19.90 Unspecified osteoarthritis, unspecified site; D64.9 Anemia, unspecified; E78.5 Hyperlipidemia, unspecified; F32.9 Major depressive disorder, single episode, unspecified; K12.30 Oral mucositis (ulcerative), unspecified; K21.9 Gastro-esophageal reflux disease without esophagitis; N18.9 Chronic kidney disease, unspecified; Z96.649 Presence of unspecified artificial hip joint; I25.10 Atherosclerotic heart disease of native coronary artery without angina pectoris; I25.2 Old myocardial infarction; Z74.01 Bed confinement status; Z79.4 Long term (current) use of insulin; Z95.5 Presence of coronary angioplasty implant and graft; Z95.1 Presence of aortocoronary bypass graft; Z90.710 Acquired absence of both cervix and uterus; Z87.81 Personal history of (healed) traumatic fracture; Z88.8 Allergy status to other drugs, medicaments and biological substances; Z83.3 Family history of diabetes mellitus
CPT/HCPCS: 36415; 36600; 71045; 71250; 80048; 80053; 81001; 82550; 82553; 82803; 82947; 82948; 83036; 83605; 83735; 83874; 83880; 84100; 84443; 84484; 85025; 85610; 85730; 86141; 87040; 87071; 87088; 87186; 87205; 87633; 87804; 92610; 93005; 93970; 94640; 94660; 94664; 94667; 94668; 97039; A4218; J0360; J0692; J1815; J1940; J1956; J2185; J2930; J3370; J3475; J7030; J7608

== ENCOUNTER 2018-04-23 10:17 | Emergency (ER) | payer MEDICARE ==
[~2018-04-23 10:17] MED LIST changes: +BENZ-39 PO; +BISA10SU61 RC; +CITA-107 PO; +MAGN400O17 PO; +METF-444 PO; -METF500T6 PO; +MULT-248 PO; +ONDA4SOL2 PO; +[UNRECOGNIZED DRUG - CODE] PO
[2018-04-23 11:40] LABS: BASOPHILS % (AUTO) 0.4 % (0.0-5.0); EOSINOPHILS % (AUTO) 2.4 % (0.0-8.0); HEMATOCRIT 31.8 % (36-48); LYMPHOCYTES % (AUTO) 17.8 % (21.0-51.0); MEAN CORPUSCULAR HEMOGLOBIN 30.4 pg (27.0-33.0); MEAN CORPUSCULAR HGB CONC 32.9 g/dL (32.0-36.0); MEAN CORPUSCULAR VOLUME 92.4 fL (79-99); MONOCYTES % (AUTO) 1.9 % (3.0-13.0); NEUTROPHILS % (AUTO) 77.5 % (40.0-77.0); NUCLEATED RED BLOOD CELLS 0.1 % (0.0-0.19); PLATELET COUNT (AUTO) 84 K/uL (130-400); RED BLOOD CELL COUNT(AUTO) 3.44 MIL/uL (4.00-5.50); RED CELL DISTRIBUTION WIDTH 16.6 % (11.0-15.5); WHITE BLOOD COUNT (AUTO) 4.1 K/uL (4.8-10.8)
[2018-04-23 11:46] LABS: CREATININE 1.4 mg/dL (0.5-1.5); POTASSIUM 3.7 mmol/L (3.5-5.1)
== END 2018-04-23 12:49 | disposition home or self-care (01) ==
LOC: EDH 10:17
DX: R13.10 Dysphagia, unspecified (principal); J02.9 Acute pharyngitis, unspecified; E11.9 Type 2 diabetes mellitus without complications; I10 Essential (primary) hypertension; E78.5 Hyperlipidemia, unspecified; K21.9 Gastro-esophageal reflux disease without esophagitis; I25.10 Atherosclerotic heart disease of native coronary artery without angina pectoris; F32.9 Major depressive disorder, single episode, unspecified; Z98.890 Other specified postprocedural states; Z72.0 Tobacco use
CPT/HCPCS: 36415; 80048; 85025

== ENCOUNTER 2019-09-11 11:40 | Inpatient (IN) | payer MEDICARE ==
[~2019-09-11] VITALS: Ht 160 cm; Wt 64.4 kg
[~2019-09-11 11:40] MED LIST changes: -ALPR1TAB7 PO; +AMLO-257 PO; -BENZ-39 PO; -BISA10SU61 RC; +CALC3.8S NS; -CITA20TA17 PO; +CYAN250014 PO; -FAMO20TA8 PO; +FERR324T4 PO; -FISH1CAP27 PO; +FLUT44HFA IH; +FOLI0.8C PO; +LINA5TAB PO; -LISI40TA4 PO; -LORA10CA9 PO; -MAGN400O17 PO; -METF-444 PO; +METF500S7 PO; -METH2.5T6 PO; +METO100T14 PO; -METO75TA PO; -MULT-248 PO; +OMEG-148 PO; -ONDA4SOL2 PO; -TAMS0.4C32 PO; -[UNRECOGNIZED DRUG - CODE] PO
[2019-09-11 12:41] LABS: BASOPHILS % (AUTO) 0.3 % (0.0-5.0); EOSINOPHILS % (AUTO) 3.7 % (0.0-8.0); HEMATOCRIT 24.9 % (36-48); MEAN CORPUSCULAR HEMOGLOBIN 31.5 pg (27.0-33.0); MEAN CORPUSCULAR HGB CONC 32.9 g/dL (32.0-36.0); MEAN CORPUSCULAR VOLUME 95.8 fL (79-99); MONOCYTES % (AUTO) 5.4 % (3.0-13.0); NEUTROPHILS % (AUTO) 68.3 % (40.0-77.0); NUCLEATED RED BLOOD CELLS 1.7 % (0.0-0.19); PLATELET COUNT (AUTO) 66 K/uL (130-400); RED CELL DISTRIBUTION WIDTH 17.5 % (11.0-15.5)
[2019-09-11 12:50] LABS: INR 1.01 (0.85-1.15); PARTIAL THROMBOPLASTIN TIME 28.7 SEC (26.3-35.5); PROTHROMBIN TIME 10.9 SEC (9.6-11.6)
[2019-09-11 12:54] LABS: APPEARANCE,URINE Cloudy (CLEAR); BILIRUBIN,URINE Negative (NEGATIVE); COLOR,URINE Yellow (YELLOW); GLUCOSE, URINE (UA) Negative (NEGATIVE); KETONES,URINE Negative (NEGATIVE); LEUKOCYTE ESTERASE ,URINE Large (NEGATIVE); NITRATE,URINE Negative (NEGATIVE); OCCULT BLOOD,URINE Small (NEGATIVE); PH,URINE 6.5 (5.0-8.0); PROTEIN,URINE POS 1+ mg/dL (NEGATIVE)
[2019-09-11 12:54] LABS: CREATININE 3.2 mg/dL (0.5-1.5); POTASSIUM 4.1 mmol/L (3.5-5.1)
[2019-09-11 12:59] LABS: ALBUMIN 2.6 g/dL (3.5-5.0); BILIRUBIN,TOTAL 0.8 mg/dL (0.2-1.0); TOTAL PROTEIN, SERUM 7.7 g/dL (6.0-8.3)
[2019-09-11 13:08] LABS: B-TYPE NATRIURETIC PEPTIDE 135 pg/mL (0-100)
[2019-09-11 13:11] LABS: RBC,URINE 0-1 /HPF (0-1)
[2019-09-11 13:12] LABS: BACTERIA,URINE Moderate /HPF (None Seen); SQUAMOUS EPITHELIAL CELL,UR Rare /HPF (0-2); WBC,URINE 51-100 /HPF (0-1)
[2019-09-11 13:42] LABS: BASOPHILS % (MANUAL) 1 % (0-2); EOSINOPHILS % (MANUAL) 5 % (1-6); LYMPHOCYTES % (MANUAL) 15 % (22-44); MAN.DIFF COMMENT-IMPRESSION MANUAL DIFFERENTIAL; MONOCYTES % (MANUAL) 3 % (2-9); PLATELET MORPHOLOGY COMMENT DECREASED; SEGMENTED NEUTROPHILS % 76 % (40-70)
[2019-09-11] MEDS ORDERED: ONDANSETRON HCL 4 MG/2 ML VIAL IV PRN (16:30)
[2019-09-11] MEDS ORDERED: ACETAMINOPHEN 325 MG TAB PO PRN ×2 (16:30)
[2019-09-11] MEDS ORDERED: POTASSIUM CHLORIDE 20MEQ/100ML 100 ML IV PRN ×2 (16:30)
[2019-09-11] MEDS ORDERED: LACTULOSE 20 GM/30 ML UDCUP PO PRN (16:30)
[2019-09-11] MEDS ORDERED: DiphenhydrAMINE HCL 50 MG/ML VIAL IV PRN (16:30)
[2019-09-11] MEDS ORDERED: NITROGLYCERIN 0.4 MG SL TAB SL PRN (16:30)
[2019-09-11] MEDS ORDERED: ACETAMINOPHEN-CODEINE 300/30MG TAB PO PRN (16:30)
[2019-09-11] MEDS ORDERED: MAG HYDROX/AL HYDROX/SIMETH ES 30 ML SUSP UDCUP PO PRN (16:30)
[2019-09-11] MEDS ORDERED: HYDRALAZINE HCL 20 MG/ML VIAL IV PRN (16:30)
[2019-09-11] MEDS ORDERED: POTASSIUM CHLORIDE 10% ELIXIR 20 MEQ/15 ML UDCUP PO PRN (16:30)
[2019-09-11] MEDS ORDERED: DIPHENHYDRAMINE HCL 25 MG CAPSULE PO PRN (16:30)
[2019-09-11] MEDS ORDERED: GUAIFENESIN-DM 200/20 MG 10 ML PO PRN (16:30)
[2019-09-11] MEDS ORDERED: ALBUTEROL SULFATE 0.083% 2.5 MG/3 ML INH IH PRN (16:30)
[2019-09-11] MEDS ORDERED: MORPHINE SULFATE 2 MG/ML 1ML SYG IV PRN (16:30)
[2019-09-11] MEDS ORDERED: LACTATED RINGERS 1000ML 1,000 ML IV ONE (18:11)
[2019-09-11] MEDS ORDERED: ZOSYN 3.375GM+NS 50ML 50 ML IV ONE (20:20)
[2019-09-11] MEDS ORDERED: FAMOTIDINE/PF 20 MG/2 ML VIAL IV ONE (20:21)
[2019-09-11] MEDS: ZOSYN 3.375GM+NS 50ML 50 ML IV SCH (21:00)
[2019-09-12 02:45] VITALS: BP 151/53
[2019-09-12] MEDS: LACTATED RINGERS 1000ML 1,000 ML IV SCH ×3 (05:37→20:40)
[2019-09-12 07:11] LABS: BASOPHILS % (AUTO) 0.3 % (0.0-5.0); EOSINOPHILS % (AUTO) 10.5 % (0.0-8.0); HEMATOCRIT 22.2 % (36-48); LYMPHOCYTES % (AUTO) 33.1 % (21.0-51.0); MEAN CORPUSCULAR HEMOGLOBIN 31.4 pg (27.0-33.0); MEAN CORPUSCULAR HGB CONC 33.3 g/dL (32.0-36.0); MEAN CORPUSCULAR VOLUME 94.1 fL (79-99); MONOCYTES % (AUTO) 8.4 % (3.0-13.0); NEUTROPHILS % (AUTO) 47.7 % (40.0-77.0); PLATELET COUNT (AUTO) 35 K/uL (130-400); RED BLOOD CELL COUNT(AUTO) 2.36 MIL/uL (4.00-5.50); RED CELL DISTRIBUTION WIDTH 17.5 % (11.0-15.5); WHITE BLOOD COUNT (AUTO) 2.9 K/uL (4.8-10.8)
[2019-09-12 07:29] LABS: ALBUMIN 2.3 g/dL (3.5-5.0); BILIRUBIN,TOTAL 0.6 mg/dL (0.2-1.0); CREATININE 2.1 mg/dL (0.5-1.5); POTASSIUM 3.3 mmol/L (3.5-5.1); TOTAL PROTEIN, SERUM 6.5 g/dL (6.0-8.3)
[2019-09-12 08:00] VITALS: BP 137/53
[2019-09-12] MEDS: FAMOTIDINE/PF 20 MG/2 ML VIAL IV SCH (08:13)
[2019-09-12] MEDS: ZOSYN 3.375GM+NS 50ML 50 ML IV SCH ×2 (08:15→20:38)
[2019-09-12] MEDS: ENOXAPARIN SODIUM 30 MG/0.3 ML SQ SCH (08:17)
[2019-09-12 11:00] VITALS: BP 108/45
--- NOTE | 2019-09-12 12:39 | NUR ---
DCP CM met with pt currently asleep. Called pt's daughter Gabriella Luis on facesheet discussed dc plans. Per daughter pt is assist with ADL's prior to admission, lives at home with spouse, daughter lives close by. Pt has a walker, rollator wkr, bedside commode, cane, wheelchair, hospital bed, provider 34hrs/wk, uses [facility] in [place]. Daughter verbalized pt had been to [facility] before, agreeable for short term placement if necessary, COURTNEY telephone consent obtained for [facility], filed in chart under valverde tab. Daughter made aware will wait for MD recommendations and PT once pt close to DC. DC plan to home vs SNF. CM to cont to follow up. Addendum: 09/12/19 at 1242 by JENELLE PORRAS LVN CM Amended: Links added.
--- NOTE | 2019-09-12 13:53 | NUR ---
0596 BPCI Letter given to patient.
[2019-09-12 16:00] VITALS: BP 120/55
[2019-09-12] MEDS: POTASSIUM CHLORIDE 20 MEQ ERTAB PO PRN ×2 (17:23→17:28)
[2019-09-12 19:48] VITALS: BP 145/47
[2019-09-12 23:39] VITALS: BP 116/46
[2019-09-13 03:37] VITALS: BP 117/39
[2019-09-13 05:27] LABS: BASOPHILS % (AUTO) 0.3 % (0.0-5.0); EOSINOPHILS % (AUTO) 10.4 % (0.0-8.0); HEMATOCRIT 22.9 % (36-48); LYMPHOCYTES % (AUTO) 35.1 % (21.0-51.0); MEAN CORPUSCULAR HEMOGLOBIN 31.9 pg (27.0-33.0); MEAN CORPUSCULAR HGB CONC 32.3 g/dL (32.0-36.0); MEAN CORPUSCULAR VOLUME 98.7 fL (79-99); MONOCYTES % (AUTO) 10.4 % (3.0-13.0); NEUTROPHILS % (AUTO) 43.2 % (40.0-77.0); NUCLEATED RED BLOOD CELLS 0.6 % (0.0-0.19); PLATELET COUNT (AUTO) 31 K/uL (130-400); RED BLOOD CELL COUNT(AUTO) 2.32 MIL/uL (4.00-5.50); RED CELL DISTRIBUTION WIDTH 18.1 % (11.0-15.5); WHITE BLOOD COUNT (AUTO) 3.1 K/uL (4.8-10.8)
[2019-09-13 05:45] LABS: ALBUMIN 2.2 g/dL (3.5-5.0); ASPARTATE AMINOTRANSFERASE 19 U/L (10-37); BILIRUBIN,TOTAL 0.6 mg/dL (0.2-1.0); CARBON DIOXIDE 23 mmol/L (21-32); CHLORIDE 102 mmol/L (101-111); GLOMERULAR FILTR. RATE CALC 25 mL/min (>60); GLUCOSE,RANDOM 114 mg/dL (70-105); POTASSIUM 4.1 mmol/L (3.5-5.1); SODIUM SERUM 134 mmol/L (136-145); TOTAL PROTEIN, SERUM 6.6 g/dL (6.0-8.3); UREA NITROGEN, BLOOD 32 mg/dL (7-18)
[2019-09-13 05:53] LABS: ALANINE AMINOTRANSFERASE < 6 U/L (12-78)
[2019-09-13 08:02] VITALS: BP 145/53
[2019-09-13] MEDS: FAMOTIDINE/PF 20 MG/2 ML VIAL IV SCH (08:42)
[2019-09-13] MEDS: ZOSYN 3.375GM+NS 50ML 50 ML IV SCH ×2 (08:45→20:22)
[2019-09-13] MEDS: ENOXAPARIN SODIUM 30 MG/0.3 ML SQ SCH (08:46)
[2019-09-13] MEDS: LACTATED RINGERS 1000ML 1,000 ML IV SCH ×2 (08:46→20:25)
[2019-09-13 09:10] LABS: HEPATITIS A ANTIBODY IGM Negative (Negative); HEPATITIS B CORE IGM Negative (Negative); HEPATITIS Bs ANTIGEN SCREEN P Negative (Negative)
[2019-09-13] MEDS: IPRATROPIUM/ALBUTEROL SULFATE 3 ML SOLUTION IH SCH ×3 (11:57→23:36)
[2019-09-13 11:58] VITALS: BP 119/48
[2019-09-13 16:43] VITALS: BP 125/51
[2019-09-13 19:44] VITALS: BP 136/62
[2019-09-13] MEDS ORDERED: GLUCAGON 1MG KIT 1 MG ML IM PRN (21:15)
[2019-09-13] MEDS ORDERED: DEXTROSE 50%-WATER 50 ML DISP.SYRIN IV PRN (21:15)
[2019-09-13 23:14] VITALS: BP 137/69
[2019-09-14 03:17] VITALS: BP 133/61
[2019-09-14 03:56] LABS: BASOPHILS % (AUTO) 0.4 % (0.0-5.0); EOSINOPHILS % (AUTO) 6.6 % (0.0-8.0); LYMPHOCYTES % (AUTO) 35.5 % (21.0-51.0); MEAN CORPUSCULAR HEMOGLOBIN 31.6 pg (27.0-33.0); MEAN CORPUSCULAR HGB CONC 32.7 g/dL (32.0-36.0); MEAN CORPUSCULAR VOLUME 96.7 fL (79-99); MONOCYTES % (AUTO) 14.7 % (3.0-13.0); NEUTROPHILS % (AUTO) 41.3 % (40.0-77.0); PLATELET COUNT (AUTO) 38 K/uL (130-400); RED BLOOD CELL COUNT(AUTO) 2.15 MIL/uL (4.00-5.50); RED CELL DISTRIBUTION WIDTH 18.7 % (11.0-15.5); WHITE BLOOD COUNT (AUTO) 2.7 K/uL (4.8-10.8)
[2019-09-14 04:15] LABS: HEMATOCRIT 20.8 % (36-48)
[2019-09-14 04:16] LABS: ALBUMIN 2.2 g/dL (3.5-5.0); BILIRUBIN,TOTAL 0.5 mg/dL (0.2-1.0); CREATININE 2.1 mg/dL (0.5-1.5); POTASSIUM 3.6 mmol/L (3.5-5.1); TOTAL PROTEIN, SERUM 6.4 g/dL (6.0-8.3)
[2019-09-14 04:48] LABS: BAND NEUTROPHILS % (MANUAL) 4 % (0-2); EOSINOPHILS % (MANUAL) 4 % (1-6); LYMPHOCYTES % (MANUAL) 16 % (22-44); MAN.DIFF COMMENT-IMPRESSION MANUAL DIFFERENTIAL; MONOCYTES % (MANUAL) 8 % (2-9); PLATELET MORPHOLOGY COMMENT DECREASED; SEGMENTED NEUTROPHILS % 68 % (40-70)
[2019-09-14] MEDS: INSULIN HUMULIN R 100 UNIT/ML 3ML SQ SCH ×4 (06:16→20:17)
[2019-09-14] MEDS: IPRATROPIUM/ALBUTEROL SULFATE 3 ML SOLUTION IH SCH ×2 (06:19→11:35)
[2019-09-14 07:45] VITALS: BP 146/72
[2019-09-14] MEDS: FAMOTIDINE/PF 20 MG/2 ML VIAL IV SCH (08:34)
[2019-09-14] MEDS: ZOSYN 3.375GM+NS 50ML 50 ML IV SCH (08:35)
[2019-09-14] MEDS: ENOXAPARIN SODIUM 30 MG/0.3 ML SQ SCH (08:35)
[2019-09-14] MEDS ORDERED: LEVOFLOXACIN 500 MG/D5W 100 ML 100 ML IV SCH (10:15)
[2019-09-14] MEDS ORDERED: RENAL DOSE IV SCH (10:15)
--- NOTE | 2019-09-14 11:25 | NUR ---
Brittany Em: Order received for SNF referral. Pt previously consented to [facility]. In to speak w pt this morning to review Md order for SNF and reconfirm consent for [facility]. Pt verbalizes agreement. Clinical/PASRR/COVID-19 form faxed to Brittany Em. Call placed to [facility], [facility] will inform Estephanie of new referral. Informed [facility] PT notes are still pending at this time. CM to f/u.
[2019-09-14] MEDS ORDERED: ALBUTEROL SULFATE 0.083% 2.5 MG/3 ML INH IH PRN (11:45)
[2019-09-14] MEDS ORDERED: IPRATROPIUM/ALBUTEROL SULFATE 3 ML SOLUTION IH PRN (11:45)
--- NOTE | 2019-09-14 11:45 | NUR ---
Recheck of blood pressure from previous 167/81 is currently 150/73, asymptomatic. Will hold hydralazine and continue to monitor parameters.
[2019-09-14 12:01] VITALS: BP 167/81
[2019-09-14 12:16] LABS: HEMATOCRIT 29.8 % (36-48)
[2019-09-14] MEDS: LACTATED RINGERS 1000ML 1,000 ML IV SCH ×2 (12:28→20:17)
--- NOTE | 2019-09-14 15:30 | NUR ---
Called Dr. Aguilar on mobile to inquire of recommendations. Left message on mobile.
[2019-09-14 17:06] VITALS: BP 150/85
--- NOTE | 2019-09-14 20:20 | NUR ---
ASSESS SHIFT ASSESSMENT DONE, PLEASE REFER TO CHART. NO DISTRESS NOTED. NO CONCERNS VERBALIZED. KEPT RESTED AND COMFORTABLE IN BED. CALL LIGHT WITHIN REACH. WILL MONITOR PT. Addendum: 09/15/19 at 0120 by SHEEBA RALPH RN RN Amended: Links added.
[2019-09-14 20:41] VITALS: BP 172/78
--- NOTE | 2019-09-14 22:00 | NUR ---
ROUNDS PT ALREADY ASLEEP WITH RESPIRATIONS EVEN AND UNLABORED. KEPT RESTED AND COMFORTABLE IN BED. CALL LIGHT WITHIN REACH. WILL MONITOR PT.
[2019-09-15] VITALS (7 sets, daily range): BP systolic 123–169; BP diastolic 63–85
[2019-09-15] MEDS: LACTATED RINGERS 1000ML 1,000 ML IV SCH ×2 (00:58→20:25)
--- NOTE | 2019-09-15 01:15 | NUR ---
CONFUSED PT AWAKENS AND WANTED DIAPER CHANGE. PCP IN TO ATTEND TO PT. NEW IVF BAG HUNG. PT IS HAVING VISUAL HALLUCINATIONS. VERBALIZES SEEING MOTHS FLYING AROUND THE ROOM. TRIED TO RE-ORIENT PT TO PERSON, TIME AND SPACE. KEPT ON CLOSE WATCH. SIDE RAILS RAISED.
--- NOTE | 2019-09-15 05:00 | NUR ---
ROUNDS PT STILL FAIRLY ASLEEP. NO DISTRESS NOTED. KEPT UNDISTURBED FOR NOW. FOR MORE CARE.
[2019-09-15] MEDS: INSULIN HUMULIN R 100 UNIT/ML 3ML SQ SCH ×3 (05:49→20:30)
[2019-09-15 08:03] LABS: BASOPHILS % (AUTO) 0.9 % (0.0-5.0); EOSINOPHILS % (AUTO) 10.8 % (0.0-8.0); HEMATOCRIT 31.4 % (36-48); LYMPHOCYTES % (AUTO) 24.1 % (21.0-51.0); MEAN CORPUSCULAR HEMOGLOBIN 31.5 pg (27.0-33.0); MEAN CORPUSCULAR HGB CONC 33.1 g/dL (32.0-36.0); MEAN CORPUSCULAR VOLUME 95.2 fL (79-99); NEUTROPHILS % (AUTO) 44.9 % (40.0-77.0); PLATELET COUNT (AUTO) 94 K/uL (130-400); RED CELL DISTRIBUTION WIDTH 18.1 % (11.0-15.5); WHITE BLOOD COUNT (AUTO) 3.2 K/uL (4.8-10.8)
[2019-09-15 08:20] LABS: CREATININE 1.9 mg/dL (0.5-1.5); MAGNESIUM 1.5 mg/dL (1.80-2.40); POTASSIUM 3.7 mmol/L (3.5-5.1)
[2019-09-15] MEDS ORDERED: AMLODIPINE BESYLATE 5 MG TAB PO SCH (09:00)
[2019-09-15] MEDS ORDERED: MAGNESIUM 2GM PREMIX 50ML 50 ML IV SCH (09:00)
--- NOTE | 2019-09-15 14:20 | NUR ---
CM NOTE/RETAMA ACCEPTED PER RADAMES BEAVER, PATIENT APPROVED. PRIMARY NURSE, LISA DORAN, MADE AWARE.
[2019-09-15] MEDS: FAMOTIDINE/PF 20 MG/2 ML VIAL IV SCH (15:17)
[2019-09-15] MEDS: METRONIDAZOLE 500 MG TABLET PO SCH ×2 (15:17→20:24)
[2019-09-15] MEDS: METOPROLOL TARTRATE 50 MG TAB PO SCH ×2 (15:25→20:24)
[2019-09-15] MEDS: CEFUROXIME AXETIL 250 MG TABLET PO SCH (15:25)
--- NOTE | 2019-09-15 20:30 | NUR ---
MEDS SHIFT ASSESSMENT DONE, PLEASE REFER TO CHART. DUE MEDS ADMINISTERED, TOLERATED WELL. PT'S PIV NOTED TO BE LEAKING. DISCONTINUED PIV WITH CATHETER INTACT. RE-INSERTED G22 TO RAC THEN CONTINUED IVF. PT TOLERATED PIV RE-INSERTION WELL. KEPT RESTED AND COMFORTABLE IN BED. CALL LIGHT WITHIN REACH. WILL MONITOR PT. Addendum: 09/16/19 at 0011 by SHEEBA RALPH RN RN Amended: Links added.
--- NOTE | 2019-09-15 21:15 | NUR ---
REPORT REPORT GIVEN TO ANDREEA QUISPE. ENDORSING PT FOR MORE CARE AND MANAGEMENT.
[2019-09-15] MEDS ORDERED: ALPR-409 PO (22:05)
[2019-09-15] MEDS ORDERED: VALA500T42 PO (22:06)
[2019-09-16] MEDS ORDERED: PHARMACY COMMUNICATION MISC SCH (02:45)
[2019-09-16 03:52] VITALS: BP 143/64
[2019-09-16 03:58] LABS: MAGNESIUM 2.3 mg/dL (1.80-2.40)
[2019-09-16 04:22] LABS: CREATININE 1.8 mg/dL (0.5-1.5); POTASSIUM 3.6 mmol/L (3.5-5.1)
[2019-09-16] MEDS: INSULIN HUMULIN R 100 UNIT/ML 3ML SQ SCH ×4 (05:58→20:32)
--- NOTE | 2019-09-16 07:10 | NUR ---
0650; Patient having the urge to void, unclamped schulz catheter, urine of 250 out, in catheter. Catheter removed after deflating balloon of 8 mls clear fluid at 0700. 0710: INcoming nurse Ginger DORAN informed of patient DTV, verbalized understanding.
[2019-09-16 07:30] VITALS: BP 160/72
[2019-09-16] MEDS ORDERED: LEVOFLOXACIN 250 MG/D5W 50ML 50 ML IVPB SCH (09:00)
[2019-09-16] MEDS: CHOLECALCIFEROL PO SCH (09:00)
[2019-09-16] MEDS: FAMOTIDINE/PF 20 MG/2 ML VIAL IV SCH (09:53)
[2019-09-16] MEDS: METRONIDAZOLE 500 MG TABLET PO SCH ×2 (09:53→20:32)
[2019-09-16] MEDS: FERROUS SULFATE 325 MG TABLET.DR PO SCH (09:53)
[2019-09-16] MEDS: FISH OIL 1000 MG/CAP PO SCH (09:53)
[2019-09-16] MEDS: METOPROLOL TARTRATE 50 MG TAB PO SCH ×2 (09:53→20:32)
[2019-09-16] MEDS: CITALOPRAM 20 MG TABLET PO SCH (09:54)
--- NOTE | 2019-09-16 10:37 | NUR ---
patient voided at this time
[2019-09-16 11:00] VITALS: BP 155/68
[2019-09-16] MEDS: FOLIC ACID 1 MG TABLET PO SCH (13:12)
[2019-09-16] MEDS: CEFUROXIME AXETIL 250 MG TABLET PO SCH (13:12)
[2019-09-16] MEDS: CYANOCOBALAMIN (VITAMIN B-12) 1,000 MCG TABLET PO SCH (13:12)
[2019-09-16 16:00] VITALS: BP 144/63
[2019-09-16] MEDS: CALCITONIN 3.7 ML AEROSOL NS SCH (17:31)
[2019-09-16 20:00] VITALS: BP 152/69
[2019-09-16] MEDS ORDERED: ALPRAZOLAM 0.25 MG TABLET PO SCH (21:00)
[2019-09-16] MEDS ORDERED: AMLODIPINE BESYLATE 5 MG TAB PO SCH ×2 (21:00)
[2019-09-17] VITALS: BP 138/59
[2019-09-17 04:00] VITALS: BP 131/59
[2019-09-17 04:08] LABS: CREATININE 1.9 mg/dL (0.5-1.5); POTASSIUM 3.3 mmol/L (3.5-5.1)
[2019-09-17 04:12] LABS: BASOPHILS % (AUTO) 1.1 % (0.0-5.0); HEMATOCRIT 28.3 % (36-48); LYMPHOCYTES % (AUTO) 18.7 % (21.0-51.0); MEAN CORPUSCULAR HEMOGLOBIN 31.8 pg (27.0-33.0); MEAN CORPUSCULAR HGB CONC 33.2 g/dL (32.0-36.0); MEAN CORPUSCULAR VOLUME 95.6 fL (79-99); MONOCYTES % (AUTO) 27.3 % (3.0-13.0); NEUTROPHILS % (AUTO) 43.4 % (40.0-77.0); PLATELET COUNT (AUTO) 233 K/uL (130-400); RED BLOOD CELL COUNT(AUTO) 2.96 MIL/uL (4.00-5.50); RED CELL DISTRIBUTION WIDTH 17.4 % (11.0-15.5); WHITE BLOOD COUNT (AUTO) 4.4 K/uL (4.8-10.8)
[2019-09-17] MEDS: INSULIN HUMULIN R 100 UNIT/ML 3ML SQ SCH ×3 (07:05→16:18)
[2019-09-17 08:26] VITALS: BP 151/75
[2019-09-17] MEDS: FAMOTIDINE/PF 20 MG/2 ML VIAL IV SCH (08:39)
[2019-09-17] MEDS: METRONIDAZOLE 500 MG TABLET PO SCH (08:40)
[2019-09-17] MEDS: METOPROLOL TARTRATE 50 MG TAB PO SCH (08:40)
[2019-09-17] MEDS: FERROUS SULFATE 325 MG TABLET.DR PO SCH (08:40)
[2019-09-17] MEDS: CITALOPRAM 20 MG TABLET PO SCH (08:40)
[2019-09-17] MEDS: FISH OIL 1000 MG/CAP PO SCH (08:40)
[2019-09-17] MEDS: CALCITONIN 3.7 ML AEROSOL NS SCH (08:41)
[2019-09-17] MEDS: CHOLECALCIFEROL PO SCH (08:42)
[2019-09-17 11:00] VITALS: BP 114/60
[2019-09-17] MEDS: FOLIC ACID 1 MG TABLET PO SCH (11:42)
[2019-09-17] MEDS: CYANOCOBALAMIN (VITAMIN B-12) 1,000 MCG TABLET PO SCH (11:42)
[2019-09-17] MEDS: CEFUROXIME AXETIL 250 MG TABLET PO SCH (11:43)
[2019-09-17 16:00] VITALS: BP 143/52
--- NOTE | 2019-09-17 17:20 | NUR ---
D/C PT LEFT A/A X 2 IN WHEELCHAIR IN VAN OF PROVIDER FROM [facility]. PT V/S STABLE AND NO COMPLICATIONS. A COPY OF CHART SENT. PT JEWELRY WAS SENT WITH HER. SHE IS WEARING GOLD NECKLACE AND ONE GOLD ERRING. THE OTHER GOLD ERRING IS A CONTAINER LABELED WITH HER NAME, DAUGHTER ASKED FOR MOTHER TO WEAR JEWELRY SO IT WOULDN'T GET LOST.
[2019-10-01] MEDS ORDERED: ALBU0.63 IH (18:08)
[2019-10-01] MEDS ORDERED: DOCU-116 PO (18:08)
[2019-10-01] MEDS ORDERED: CLON0.1T PO (18:08)
[2019-10-01] MEDS ORDERED: ACET-2247 PO (18:08)
[2019-10-01] MEDS ORDERED: AMLO5TAB4 PO (18:08)
[2019-10-01] MEDS ORDERED: ASPI-556 PO (18:08)
[2019-10-01] MEDS ORDERED: NITR0.4T50 SL (18:08)
[2019-10-01] MEDS ORDERED: FURO40TA7 PO (18:08)
[2019-12-20] MEDS ORDERED: AMLO-257 PO (14:39)
== END 2019-09-17 17:20 | DRG 871 ==
LOC: EDH 11:40 → EDHIP 16:23 → 3BH 09-12 03:04
PROVIDERS: ADMIT Family Medicine; ATTEND Family Medicine
PROC: 30233N1 Transfusion of Nonautologous Red Blood Cells into Peripheral Vein, Percutaneous Approach (ICD-10-PCS; principal; 2019-09-11)
DX: A41.9 Sepsis, unspecified organism (principal); G93.41 Metabolic encephalopathy; N39.0 Urinary tract infection, site not specified; D61.818 Other pancytopenia; N17.9 Acute kidney failure, unspecified; Z16.11 Resistance to penicillins; K52.9 Noninfective gastroenteritis and colitis, unspecified; F32.9 Major depressive disorder, single episode, unspecified; E11.22 Type 2 diabetes mellitus with diabetic chronic kidney disease; I12.9 Hypertensive chronic kidney disease with stage 1 through stage 4 chronic kidney disease, or unspecified chronic kidney disease; E83.42 Hypomagnesemia; K21.9 Gastro-esophageal reflux disease without esophagitis; M19.90 Unspecified osteoarthritis, unspecified site; B96.1 Klebsiella pneumoniae [K. pneumoniae] as the cause of diseases classified elsewhere; E87.6 Hypokalemia; F02.80 Dementia in other diseases classified elsewhere, unspecified severity, without behavioral disturbance, psychotic disturbance, mood disturbance, and anxiety; G30.9 Alzheimer's disease, unspecified; G20 Parkinson's disease; I25.10 Atherosclerotic heart disease of native coronary artery without angina pectoris; J44.9 Chronic obstructive pulmonary disease, unspecified; K74.60 Unspecified cirrhosis of liver; N18.9 Chronic kidney disease, unspecified; R53.81 Other malaise; R62.7 Adult failure to thrive; Z96.659 Presence of unspecified artificial knee joint; Z68.25 Body mass index [BMI] 25.0-25.9, adult; Z88.2 Allergy status to sulfonamides; Z88.8 Allergy status to other drugs, medicaments and biological substances; Z90.710 Acquired absence of both cervix and uterus; Z95.5 Presence of coronary angioplasty implant and graft; Z86.73 Personal history of transient ischemic attack (TIA), and cerebral infarction without residual deficits; Z83.3 Family history of diabetes mellitus; Z80.9 Family history of malignant neoplasm, unspecified; Z82.5 Family history of asthma and other chronic lower respiratory diseases; Z82.3 Family history of stroke; Z82.0 Family history of epilepsy and other diseases of the nervous system; Z82.49 Family history of ischemic heart disease and other diseases of the circulatory system
CPT/HCPCS: 36415; 36430; 70450; 71045; 71250; 74176; 80048; 80053; 80074; 81001; 82140; 82270; 82550; 82948; 83735; 83880; 84145; 84156; 84166; 84484; 85014; 85018; 85025; 85610; 85730; 86325; 86334; 86850; 86900; 86901; 86922; 87040; 87077; 87088; 87186; 93005; 94640; 94664; 94760; 97039; A4606; G0378; J0360; J1815; J1956; J2543; J3475; J3490; J7120; P9016; Q0163

== ENCOUNTER 2019-09-30 19:34 | Observation (INO) | payer MEDICARE ==
[~2019-09-30] VITALS: Ht 160 cm; Wt 74.2 kg
[2019-09-30] MEDS ORDERED: ASPIRIN 325 MG TABLET ONE (20:43)
[2019-10-01] MEDS ORDERED: ONDANSETRON HCL 4 MG/2 ML VIAL IV PRN (01:45)
[2019-10-01] MEDS ORDERED: NITROGLYCERIN 0.4 MG SL TAB SL PRN (01:45)
[2019-10-01] MEDS ORDERED: GLUCAGON 1MG KIT 1 MG ML IM PRN (02:00)
[2019-10-01] MEDS ORDERED: DEXTROSE 50%-WATER 50 ML DISP.SYRIN IV PRN (02:00)
[2019-10-01] MEDS: INSULIN HUMULIN R 100 UNIT/ML 3ML SQ SCH ×4 (07:30→21:00)
[2019-10-01] MEDS: FAMOTIDINE/PF 20 MG/2 ML VIAL IV SCH ×2 (09:00→21:17)
[2019-10-01] MEDS: ASPIRIN 81MG TAB.CHEW PO SCH (09:00)
[2019-10-01] MEDS ORDERED: ASPIRIN 81MG TAB.CHEW ONE ×2 (11:03→11:06)
[2019-10-01] MEDS ORDERED: FAMOTIDINE/PF 20 MG/2 ML VIAL IV ONE (11:03)
[2019-10-01 17:00] VITALS: BP 147/68; PULSE 79; RESP 20; TEMP 98.4
[2019-10-01 21:57] VITALS: BP 144/50; PULSE 79; RESP 19; TEMP 97.7
[2019-10-01] MEDS ORDERED: CLONIDINE HCL 0.1 MG TABLET PO PRN (23:00)
[2019-10-01] MEDS: AMLODIPINE BESYLATE 5 MG TAB PO SCH (23:00)
[2019-10-01] MEDS ORDERED: NITROGLYCERIN 0.4 MG SL TAB SL SCH (23:00)
[2019-10-01] MEDS ORDERED: AMLODIPINE BESYLATE 5 MG TAB ONE (23:20)
[2019-10-02] VITALS (7 sets, daily range): BP systolic 111–151; BP diastolic 50–86; PULSE 57–98; RESP 16–20; TEMP 97.5–98.8
[2019-10-02] MEDS: INSULIN HUMULIN R 100 UNIT/ML 3ML SQ SCH ×4 (07:30→20:58)
[2019-10-02] MEDS: FERROUS SULFATE 325 MG TABLET.DR PO SCH (10:55)
[2019-10-02] MEDS: DOCUSATE SODIUM 100 MG CAP PO SCH ×2 (10:55→20:57)
[2019-10-02] MEDS: CYANOCOBALAMIN (VITAMIN B-12) 1,000 MCG TABLET PO SCH (10:55)
[2019-10-02] MEDS: METOPROLOL TARTRATE 50 MG TAB PO SCH ×2 (10:55→20:58)
[2019-10-02] MEDS: ASPIRIN 81MG TAB.CHEW PO SCH (10:56)
[2019-10-02] MEDS: CITALOPRAM 20 MG TABLET PO SCH (10:56)
[2019-10-02] MEDS: FUROSEMIDE 40 MG TABLET PO SCH (10:56)
[2019-10-02] MEDS: FAMOTIDINE 20MG TAB 20 MG TAB PO SCH (10:56)
[2019-10-02] MEDS ORDERED: MAGNESIUM 2GM PREMIX 50ML 50 ML IV ONE (11:00)
--- NOTE | 2019-10-02 11:00 | NUR ---
SPOKE TO PATIENT ARIELA SALAZAR, DAUGHTER ON THE PHONE- STAETS PATIENT IS TO GO BACK TO [facility]- STATES PT HAS A 100 DAYS AND WE ARE GOING OT USE ALL OF THEM-- STATES WAS QUARANTINED FOR 14 DAYS, 'JUST CAME OFF QUARANTINE AND NOW HAS TO GO BACK ON FOR 14 DAYS" STATES PT DOES NOT LIKE SHARING A ROOM, IT MAKES HER ANXIOUS VERBAL COURTNEY CONSENT- ADVISED BY THIS CM THAT PATIENT WILL RETURN WHEN COVID RESULT COMES BACK Addendum: 10/02/19 at 1542 by CYNTHIA GERONIMO RN CM Amended: Links added.
[2019-10-02] MEDS ORDERED: MAGNESIUM 2GM PREMIX 50ML 50 ML IV SCH (11:15)
--- NOTE | 2019-10-02 15:32 | NUR ---
SENT ALL INFO TO [facility] VIA FAX [phone] INCLUDING MED REC, AND SENT TO [facility]. PENDING COVID RAPID TEST THIS EVENING. SHANTELLE VALDIVIA GO BY EMS Addendum: 10/02/19 at 1537 by CYNTHIA GERONIMO RN CM Amended: Links added.
--- NOTE | 2019-10-02 15:42 | NUR ---
DISP TO [facility] VIA EMS Addendum: 10/02/19 at 1543 by CYNTHIA GERONIMO RN CM Amended: Links added.
--- NOTE | 2019-10-02 16:30 | NUR ---
RE: TIME TO TRANSFER PATIENT TO [facility] SPOKE WITH MANJU ZELAYA, SHOE LASTER AND SAID THERE IS NO SPECIFIC TIME THE PATIEN IS TO ARRIVE/ACCEPT/ADMIT TO FACILITY. SHE DID MENTION PT HAD TO BE TESTED FOR COVID WITH RESULTS PRIOR TO TRANSFER.
[2019-10-02] MEDS ORDERED: ALPRAZOLAM 0.25 MG TABLET PO SCH (21:00)
[2019-10-02] MEDS ORDERED: AMLODIPINE BESYLATE 5 MG TAB PO SCH (21:00)
[2019-10-02] MEDS: AMLODIPINE BESYLATE 5 MG TAB PO SCH (23:00)
[2019-10-03 04:22] VITALS: BP 130/61; PULSE 52; RESP 20; TEMP 98.1
[2019-10-03] MEDS: INSULIN HUMULIN R 100 UNIT/ML 3ML SQ SCH (06:25)
[2019-10-03 08:00] VITALS: BP 139/58; PULSE 66; RESP 18; TEMP 97.3
--- NOTE | 2019-10-03 08:00 | NUR ---
SITTING IN CHAIR EATING BKFT. NO C/O. DAUGHTER , CALLED FOR UPDATE ON HER MOM.
[2019-10-03] MEDS: FUROSEMIDE 40 MG TABLET PO SCH (08:44)
[2019-10-03] MEDS: FAMOTIDINE 20MG TAB 20 MG TAB PO SCH (08:44)
[2019-10-03] MEDS: FERROUS SULFATE 325 MG TABLET.DR PO SCH (08:44)
[2019-10-03] MEDS: CYANOCOBALAMIN (VITAMIN B-12) 1,000 MCG TABLET PO SCH (08:44)
[2019-10-03] MEDS: DOCUSATE SODIUM 100 MG CAP PO SCH (08:44)
[2019-10-03] MEDS: CITALOPRAM 20 MG TABLET PO SCH (08:44)
[2019-10-03 11:00] VITALS: BP 131/55; PULSE 55; RESP 19; TEMP 99
--- NOTE | 2019-10-03 11:23 | NUR ---
COVIC -19 RESULTS BACK, NEGATIVE. PT. NOTIFIED AND WILL CALL SNF WITH REPORT.
--- NOTE | 2019-10-03 14:42 | NUR ---
7595 patient signed BANKS Letter, I faxed BANKS Letter to [phone] and placed in chart under consent tab.
--- NOTE | 2019-10-03 15:00 | NUR ---
REPORT CALLED IN TO MARTHA CLIFFORD LVN, EMS ALSO NOTIFIED OF TRANSFER. PT. PREPARED FOR DISCHARGE. DAUGHTER CALLED SHE REQUESTED AND WANTS TO BE CALLED WHEN AMBULANCE IS HERE
--- NOTE | 2019-10-03 17:30 | NUR ---
TRANSFERRED TO [facility] IN [place] VIA AMBULANCE. FAMILY NOTIFIED. COPY OF CHART AND MED. RECONCILIATION FORM SENT WITH EMS.
== END 2019-10-03 18:00 ==
LOC: EDH 19:34 → EDHIP 10-01 01:33 → INTOOBSV 10-01 01:33 → 3CH 10-01 16:43
PROVIDERS: ADMIT Internal Medicine; ATTEND Internal Medicine
DX: R07.89 Other chest pain (principal); I13.10 Hypertensive heart and chronic kidney disease without heart failure, with stage 1 through stage 4 chronic kidney disease, or unspecified chronic kidney disease; E11.22 Type 2 diabetes mellitus with diabetic chronic kidney disease; I25.10 Atherosclerotic heart disease of native coronary artery without angina pectoris; N18.3 Chronic kidney disease, stage 3 (moderate); R79.89 Other specified abnormal findings of blood chemistry; F02.80 Dementia in other diseases classified elsewhere, unspecified severity, without behavioral disturbance, psychotic disturbance, mood disturbance, and anxiety; G30.9 Alzheimer's disease, unspecified; M06.9 Rheumatoid arthritis, unspecified; I44.7 Left bundle-branch block, unspecified; F32.9 Major depressive disorder, single episode, unspecified; F41.9 Anxiety disorder, unspecified; Z90.710 Acquired absence of both cervix and uterus; Z96.652 Presence of left artificial knee joint; Z88.2 Allergy status to sulfonamides; Z79.4 Long term (current) use of insulin; Z86.73 Personal history of transient ischemic attack (TIA), and cerebral infarction without residual deficits
CPT/HCPCS: 36415 ×3; 71045; 80048; 80053 ×2; 80061; 82550; 82948 ×6; 83036; 83735; 84443; 84484 ×4; 85025 ×3; 85610; 85730; 87635; 93005; 93306; 93356; 96365; 96366; 97039 ×2; 97116; 97161; 99285; G0378 ×24; G8981; G8982; G8983; J3475; J3490 ×2

== ENCOUNTER 2019-12-19 14:44 | Inpatient (IN) | payer MEDICARE ==
[~2019-12-19] VITALS: Ht 160 cm; Wt 77.3 kg
[~2019-12-19 14:44] MED LIST changes: +ACET-2247 PO; +ALBU0.63 IH; +ALPR-409 PO; -AMLO-257 PO; +AMLO5TAB4 PO; +AMLO5TAB9 PO; -APIX2.5T PO; +ASPI-556 PO; +CLON0.1T PO; +DOCU-116 PO; -FLUT44HFA IH; +FURO40TA7 PO; -METF500S7 PO; +NITR0.4T50 SL
[2019-12-19 15:31] LABS: EOSINOPHILS % (AUTO) 7.8 % (0.0-8.0); HEMATOCRIT 38.5 % (36-48); LYMPHOCYTES % (AUTO) 21.6 % (21.0-51.0); MEAN CORPUSCULAR HEMOGLOBIN 28.7 pg (27.0-33.0); MEAN CORPUSCULAR HGB CONC 32.7 g/dL (32.0-36.0); MEAN CORPUSCULAR VOLUME 87.7 fL (79-99); MONOCYTES % (AUTO) 11.1 % (3.0-13.0); NEUTROPHILS % (AUTO) 58.1 % (40.0-77.0); PLATELET COUNT (AUTO) 162 K/uL (130-400); RED BLOOD CELL COUNT(AUTO) 4.39 MIL/uL (4.00-5.50); RED CELL DISTRIBUTION WIDTH 13.9 % (11.0-15.5); WHITE BLOOD COUNT (AUTO) 5.2 K/uL (4.8-10.8)
[2019-12-19 15:47] LABS: INR 1.03 (0.85-1.15); PARTIAL THROMBOPLASTIN TIME 33.1 SEC (26.3-35.5); PROTHROMBIN TIME 11.1 SEC (9.6-11.6)
[2019-12-19 15:48] LABS: ALBUMIN 2.8 g/dL (3.5-5.0); BILIRUBIN,TOTAL 0.5 mg/dL (0.2-1.0); TOTAL PROTEIN, SERUM 9.2 g/dL (6.0-8.3)
[2019-12-19 15:52] LABS: POTASSIUM 6.2 mmol/L (3.5-5.1)
[2019-12-19] MEDS ORDERED: SODIUM POLYSTYRENE SULFONATE 15 GM/60 ML ML ONE (16:16)
[2019-12-19] MEDS ORDERED: DEXTROSE 50%-WATER 50 ML DISP.SYRIN IV ONE (16:17)
[2019-12-19] MEDS ORDERED: SODIUM BICARB 50MEQ 50ML VIAL ONE (16:17)
[2019-12-19] MEDS ORDERED: CALCIUM GLUCONATE 1 GM/10 ML VIAL IV ONE (16:17)
[2019-12-19] MEDS ORDERED: INSULIN HUMULIN R 100 UNIT/ML 3ML ONE (16:18)
[2019-12-19] MEDS ORDERED: ALBUTEROL SULFATE 0.083% 2.5 MG/3 ML INH IH ONE (16:19)
[2019-12-19] MEDS ORDERED: ONDANSETRON HCL 4 MG/2 ML VIAL IV PRN (18:45)
[2019-12-19] MEDS ORDERED: ACETAMINOPHEN 325 MG TAB PO PRN ×2 (18:45)
[2019-12-19] MEDS ORDERED: MORPHINE SULFATE 2 MG/ML 1ML SYG IV PRN (18:45)
[2019-12-19] MEDS ORDERED: FUROSEMIDE 10 MG/ML 2ML VIAL ONE (19:50)
[2019-12-19] MEDS ORDERED: FAMOTIDINE/PF 20 MG/2 ML VIAL IV ONE (19:50)
[2019-12-19] MEDS ORDERED: ACETAMINOPHEN EXTRA STRENGTH 500 MG TABLET ONE (20:36)
[2019-12-19] MEDS: FUROSEMIDE 10 MG/ML 4ML VIAL IVP SCH (21:00)
[2019-12-19 23:10] VITALS: BP 113/55
[2019-12-20 04:00] VITALS: BP 109/62
[2019-12-20 05:35] LABS: BASOPHILS % (AUTO) 0.5 % (0.0-5.0); EOSINOPHILS % (AUTO) 9.3 % (0.0-8.0); HEMATOCRIT 33.3 % (36-48); LYMPHOCYTES % (AUTO) 18.1 % (21.0-51.0); MEAN CORPUSCULAR HEMOGLOBIN 28.5 pg (27.0-33.0); MEAN CORPUSCULAR HGB CONC 32.7 g/dL (32.0-36.0); MEAN CORPUSCULAR VOLUME 86.9 fL (79-99); MONOCYTES % (AUTO) 7.9 % (3.0-13.0); PLATELET COUNT (AUTO) 142 K/uL (130-400); RED BLOOD CELL COUNT(AUTO) 3.83 MIL/uL (4.00-5.50); RED CELL DISTRIBUTION WIDTH 13.8 % (11.0-15.5); WHITE BLOOD COUNT (AUTO) 5.7 K/uL (4.8-10.8)
[2019-12-20 05:55] LABS: ALANINE AMINOTRANSFERASE < 6 U/L (12-78); ALBUMIN 2.4 g/dL (3.5-5.0); ASPARTATE AMINOTRANSFERASE 20 U/L (10-37); BILIRUBIN,TOTAL 0.6 mg/dL (0.2-1.0); CARBON DIOXIDE 20 mmol/L (21-32); CHLORIDE 102 mmol/L (101-111); CREATININE 5.5 mg/dL (0.5-1.5); GLOMERULAR FILTR. RATE CALC 8 mL/min (>60); GLUCOSE,RANDOM 83 mg/dL (70-105); POTASSIUM 5.4 mmol/L (3.5-5.1); SODIUM SERUM 135 mmol/L (136-145); TOTAL PROTEIN, SERUM 7.6 g/dL (6.0-8.3); UREA NITROGEN, BLOOD 70 mg/dL (7-18)
--- NOTE | 2019-12-20 07:40 | NUR ---
ASSESSMENT ENCOUNTERED PT ASLEEP BUT AROUSEABLE, A&OX3, CALM COOPERATIVE AND DOES NOT APPEAR TO BE IN ANY DISTRESS. PT DOES STATE SHE IS UNABLE TO LAY TOO FLAT OR TOO UPRIGHT DUE TO DISTENDED ABDOMEN. PT DOES HAVE GENERALIZED 3+ EDEMA IN ADDITION TO ABDOMINAL DISTENTION. PT ALSO C/O GENERALIZED BODY WEAKNESS. PT IS ABLE TO TOLERATE FLUIDS AND MEDICATION WITH NO THROAT CLEARING OR COUGH. INFORMED PT TO REMAIN NPO UNTIL EVALUATED BY DR Rd ROYAL. CALL LIGHT WITHIN REACH.
[2019-12-20 08:00] VITALS: BP 118/69
[2019-12-20] MEDS ORDERED: INSULIN HUMULIN R 100 UNIT/ML 3ML SQ SCH (10:15)
[2019-12-20] MEDS ORDERED: CALCIUM CHLORIDE 100 MG/ML 10 ML SYG IVP SCH (10:15)
[2019-12-20] MEDS ORDERED: SODIUM POLYSTYRENE SULFONATE 15 GM/60 ML ML PO SCH (10:15)
[2019-12-20] MEDS ORDERED: DEXTROSE 50%-WATER 50 ML DISP.SYRIN IV SCH (10:45)
[2019-12-20 11:30] VITALS: BP 130/69
[2019-12-20] MEDS: FAMOTIDINE/PF 20 MG/2 ML VIAL IV SCH (12:20)
[2019-12-20] MEDS: FUROSEMIDE 10 MG/ML 4ML VIAL IVP SCH ×2 (12:20→21:00)
[2019-12-20] MEDS ORDERED: CITA-107 PO (14:39)
[2019-12-20] MEDS ORDERED: FURO40TA5 PO (14:39)
[2019-12-20] MEDS ORDERED: FAMO20TA8 PO (14:39)
[2019-12-20] MEDS ORDERED: METO50 PO (14:39)
[2019-12-20] MEDS ORDERED: ALBU0.63 IH (14:39)
[2019-12-20] MEDS ORDERED: SPIR50TA5 PO (14:39)
[2019-12-20] MEDS ORDERED: LACT10SO PO (14:39)
[2019-12-20] MEDS ORDERED: AMLO5TAB9 PO (14:39)
[2019-12-20] MEDS ORDERED: NYST100P2 MC (14:39)
[2019-12-20] MEDS ORDERED: CYAN250014 PO (14:39)
[2019-12-20] MEDS ORDERED: ASPI-1197 PO (14:39)
[2019-12-20] MEDS ORDERED: ALPR0.255 PO (14:39)
[2019-12-20] MEDS ORDERED: FERS325 PO (14:39)
[2019-12-20] MEDS ORDERED: POTA20TA82 PO (14:39)
[2019-12-20] MEDS ORDERED: DOCU-116 PO (14:39)
[2019-12-20] MEDS ORDERED: FLUT1AER IH (14:39)
[2019-12-20] MEDS ORDERED: CLON0.1T PO (14:39)
[2019-12-20 14:58] LABS: CREATININE 5.8 mg/dL (0.5-1.5); POTASSIUM 4.6 mmol/L (3.5-5.1)
[2019-12-20 16:00] VITALS: BP 112/68
--- NOTE | 2019-12-20 18:37 | NUR ---
cm note unable to speak to pt, call made to daughter damon latham, states she is POA as well, states pt has been at [facility] since june 2019. and usually trasnports via [facility], w/c katharina. wishes for pt to return back to [facility] [place]. choice letter obtained, call made to Shahla alfred with [facility], and states will let cm know tomorrow if can accept pt back. Addendum: 12/20/19 at 1842 by AARON DUDLEY Amended: Links added.
[2019-12-20 20:00] VITALS: BP 117/60
[2019-12-20 23:09] LABS: APPEARANCE,URINE Turbid (CLEAR); BILIRUBIN,URINE Negative (NEGATIVE); COLOR,URINE Yellow (YELLOW); GLUCOSE, URINE (UA) Negative (NEGATIVE); KETONES,URINE Negative (NEGATIVE); LEUKOCYTE ESTERASE ,URINE Large (NEGATIVE); NITRATE,URINE Negative (NEGATIVE); OCCULT BLOOD,URINE Moderate (NEGATIVE); PROTEIN,URINE POS 1+ mg/dL (NEGATIVE); UROBILINOGEN,URINE 0.2 mg/dL (0.2-1.0)
[2019-12-20 23:18] LABS: CREATININE,URINE RANDOM 77 mg/dL (30-135)
[2019-12-20 23:20] LABS: BACTERIA,URINE Few /HPF (None Seen); MUCUS,URINE Few LPF (None Seen); SQUAMOUS EPITHELIAL CELL,UR Few /HPF (0-2); WBC,URINE TNTC /HPF (0-1)
[2019-12-20] MEDS ORDERED: LACTULOSE 20 GM/30 ML UDCUP PO PRN (23:45)
[2019-12-20] MEDS ORDERED: LACTULOSE 20 GM/30 ML UDCUP PO SCH (23:45)
[2019-12-21] MEDS ORDERED: LACTULOSE 20 GM/30 ML UDCUP ONE (00:07)
[2019-12-21 00:31] VITALS: BP 117/67
[2019-12-21] MEDS: HEPARIN SODIUM 5000UNIT/ML 1ML VIAL SQ SCH ×2 (03:17→14:42)
[2019-12-21 06:01] LABS: BASOPHILS % (AUTO) 0.5 % (0.0-5.0); EOSINOPHILS % (AUTO) 6.7 % (0.0-8.0); HEMATOCRIT 32.8 % (36-48); LYMPHOCYTES % (AUTO) 17.9 % (21.0-51.0); MEAN CORPUSCULAR HEMOGLOBIN 28.3 pg (27.0-33.0); MEAN CORPUSCULAR HGB CONC 32.3 g/dL (32.0-36.0); MEAN CORPUSCULAR VOLUME 87.7 fL (79-99); MONOCYTES % (AUTO) 9.7 % (3.0-13.0); PLATELET COUNT (AUTO) 137 K/uL (130-400); RED BLOOD CELL COUNT(AUTO) 3.74 MIL/uL (4.00-5.50); RED CELL DISTRIBUTION WIDTH 13.7 % (11.0-15.5); WHITE BLOOD COUNT (AUTO) 6.3 K/uL (4.8-10.8)
[2019-12-21 06:24] LABS: CREATININE 5.9 mg/dL (0.5-1.5); PHOSPHORUS 5.5 mg/dL (2.5-4.9); POTASSIUM 4.6 mmol/L (3.5-5.1)
[2019-12-21 06:29] VITALS: BP 120/59
[2019-12-21 06:46] LABS: % IRON SATURATION 33.7 % (22-44)
--- NOTE | 2019-12-21 06:47 | NUR ---
SHIFT UPDATE. PATIENT WITH +3 PITTING EDEMA FROM ABDOMEN TO BLE. PATIENT ON DIURETICS, FLUID RESTRICTION AND LOW SODIUM DIET. NEW ORDER FOR ANNE. 16 FR ANNE INSERTED, PT TOLERATED WELL. URINE SPECIMEN COLLECTED. PT. TOLERATES WELL, WILL CONT. TO MONITOR.
[2019-12-21] MEDS: FUROSEMIDE 10 MG/ML 4ML VIAL IVP SCH ×2 (08:42→21:31)
[2019-12-21] MEDS: FAMOTIDINE/PF 20 MG/2 ML VIAL IV SCH (08:42)
[2019-12-21] MEDS ORDERED: LACTULOSE 20 GM/30 ML UDCUP PO SCH (09:00)
--- NOTE | 2019-12-21 10:25 | NUR ---
DR. Garo ROYAL SPEAKING WITH DR. Gray TREVIZO, AT NURSE'S STATION, RE:PT.'S STATUS AND PLAN OF CARE RE:RENAL FAILURE.
--- NOTE | 2019-12-21 10:48 | NUR ---
DR. Garo ROYAL IN ROOM SPEAKING WITH PT. Addendum: 12/21/19 at 1734 by BEV LILLY RN RN TIME SHOULD READ 1028.
--- NOTE | 2019-12-21 10:51 | NUR ---
RECEIVED CALL FROM PT.'S DAUGHTER., Isidro SALAZAR, UPDATED ON PT.'S STATUS AND QUESTIONS ANSWERED.
--- NOTE | 2019-12-21 10:59 | NUR ---
DR. Gray TREVIZO SPEAKING WITH PT.'S DAUGHTER, Isidro SALAZAR, VIA TELEPHONE AND INFORMING ON PT.'S STATUS, VS, LAB RESULTS AND MEDICATION REGIMEN.
[2019-12-21] MEDS: CEFTRIAXONE SODIUM 1 GM IVP SCH ×2 (11:40→21:58)
[2019-12-21 11:52] VITALS: BP 114/59
[2019-12-21 16:00] VITALS: BP 131/53
[2019-12-21 20:36] VITALS: BP 146/77
[2019-12-21 23:41] VITALS: BP 120/56
[2019-12-22] MEDS: HEPARIN SODIUM 5000UNIT/ML 1ML VIAL SQ SCH ×2 (02:34→14:15)
[2019-12-22 04:30] VITALS: BP 95/55
[2019-12-22 05:25] LABS: BASOPHILS % (AUTO) 0.4 % (0.0-5.0); EOSINOPHILS % (AUTO) 3.1 % (0.0-8.0); HEMATOCRIT 29.3 % (36-48); LYMPHOCYTES % (AUTO) 11.5 % (21.0-51.0); MEAN CORPUSCULAR HEMOGLOBIN 28.4 pg (27.0-33.0); MEAN CORPUSCULAR HGB CONC 32.8 g/dL (32.0-36.0); MEAN CORPUSCULAR VOLUME 86.7 fL (79-99); MONOCYTES % (AUTO) 8.8 % (3.0-13.0); NEUTROPHILS % (AUTO) 75.9 % (40.0-77.0); PLATELET COUNT (AUTO) 105 K/uL (130-400); RED BLOOD CELL COUNT(AUTO) 3.38 MIL/uL (4.00-5.50); RED CELL DISTRIBUTION WIDTH 13.5 % (11.0-15.5); WHITE BLOOD COUNT (AUTO) 7.4 K/uL (4.8-10.8)
[2019-12-22 05:38] LABS: CREATININE 5.8 mg/dL (0.5-1.5)
[2019-12-22] MEDS: FUROSEMIDE 10 MG/ML 4ML VIAL IVP SCH ×2 (08:31→20:35)
[2019-12-22] MEDS: FAMOTIDINE/PF 20 MG/2 ML VIAL IV SCH (08:31)
--- NOTE | 2019-12-22 11:26 | NUR ---
DISCUSSED TRIGGER FOR HOSPICE WITH MD DR. Mason, AND CALL MADE TO DAUGHTER MOISES TO CONFIRM THAT SHE DOES WANT HOSPICE. CAN BE DONE AT [facility] CALL TO WANDY- CHOICE OF MED TEAM AND GERMAINE-"OR OTHER PREFERENCE' SENT INFO TO TERESA BEST BOOKING CLERK BACK Addendum: 12/22/19 at 1128 by CYNTHIA GERONIMO RN Amended: Links added.
[2019-12-22] MEDS: CEFTRIAXONE SODIUM 1 GM IVP SCH ×2 (11:58→22:26)
[2019-12-22 12:43] VITALS: BP 124/77
--- NOTE | 2019-12-22 13:06 | NUR ---
COVID PCR FOR PLACEMENT NEEDED-- NEEDS TO BE OBTAINED/SENT TODAY PATIENT FAMILY DECIDED ON MED TEAM HOSPICE. COURTNEY OBTAINED
--- NOTE | 2019-12-22 15:46 | NUR ---
HOSPICE REFERRAL COURTNEY FROM DAUGHTER VIA TEXT FOR THE MED TEAM HOSPICE, REFERRAL AND INFO SENT AND ALSO TO [facility]. EMS FORMS CREATED. COURTNEY FROM DAUGHTER VIA TEXT.FOR THIS HOSPICE . FACILITY AWARE OF PLAN. AWAITING TAP POSS DC IN 24-48 HRS
[2019-12-22 18:19] VITALS: BP 146/68
[2019-12-22 20:12] VITALS: BP 122/70
[2019-12-22 23:17] VITALS: BP 116/53
[2019-12-23] MEDS: HEPARIN SODIUM 5000UNIT/ML 1ML VIAL SQ SCH ×3 (02:15→13:05)
[2019-12-23 03:24] VITALS: BP 114/55
[2019-12-23 05:30] LABS: BASOPHILS % (AUTO) 0.3 % (0.0-5.0); EOSINOPHILS % (AUTO) 11.1 % (0.0-8.0); HEMATOCRIT 30.7 % (36-48); LYMPHOCYTES % (AUTO) 14.5 % (21.0-51.0); MEAN CORPUSCULAR HEMOGLOBIN 28.3 pg (27.0-33.0); MEAN CORPUSCULAR HGB CONC 32.9 g/dL (32.0-36.0); MONOCYTES % (AUTO) 9.1 % (3.0-13.0); NEUTROPHILS % (AUTO) 64.8 % (40.0-77.0); PLATELET COUNT (AUTO) 110 K/uL (130-400); RED BLOOD CELL COUNT(AUTO) 3.57 MIL/uL (4.00-5.50); RED CELL DISTRIBUTION WIDTH 13.2 % (11.0-15.5); WHITE BLOOD COUNT (AUTO) 6.5 K/uL (4.8-10.8)
[2019-12-23 06:00] LABS: CREATININE 5.7 mg/dL (0.5-1.5); POTASSIUM 4.1 mmol/L (3.5-5.1)
--- NOTE | 2019-12-23 06:45 | NUR ---
Bed bath given, patient turned and repositioned q 2 hours per protocol. Due for paracentesis today, heparin SQ held. No acute distress at this time. Following POC
[2019-12-23 08:25] VITALS: BP 138/79
[2019-12-23] MEDS: FUROSEMIDE 10 MG/ML 4ML VIAL IVP SCH ×2 (08:29→22:19)
[2019-12-23] MEDS: FAMOTIDINE/PF 20 MG/2 ML VIAL IV SCH (08:29)
--- NOTE | 2019-12-23 09:40 | NUR ---
Telephone call to Christine Orozco/Lukasz for f/u. Christine reports that she is meeting w/family around the noon hour today for admission and will obtain OOHDNR from family at that time then fax to this worker. Christine inquired as to drain being left in place after para for maintenance by hospice post d/c and for any questions on request to please contact Rosalee Liang RN/Admin @ [phone]. informed ANDREEA Campbell/[facility] of request for drain to remain in place; Shannan to f/u with Ms. Liang.
[2019-12-23 11:41] VITALS: BP 110/74
--- NOTE | 2019-12-23 12:37 | NUR ---
HOSPICE- DISCUSSION WITH DIRECTOR REQUESTED, CALLED MIRTHA RODRÍGUEZ TO DISCUSS PARACENTESIS. '[facility]' REQUESTING ABDOMINAL DRAIN LEFT IN AFTER PARA. ADVISED HER THAT WE ONLY DO DENVERS CATH'S FOR DISCHARGE HERE. MIRTHA ASKED THIS CM TO CONFIRMED, CALL TO MICHAEL GAMEZ, HE STATES THE DRAIN OUR IR DEPT USES FOR AMBIKA IS VERY TEMPORARY, ATTACHED TO VACUUM AND REMOVED AT END OF PROCEDRE, WE DON'T PUT IN APIGTAIL AND VASILE BY GRCHELI. EXPLAINED SAME TO MIRTHA, WHO STATES THEY 'WILL FIND SOME ONE TO CONTRACT WITH US TO DO IT' PLAN IS FOR DISCHARGE TO HOME IN 24-[address]AN [address] KAUR ALSO.
[2019-12-23] MEDS: CEFTRIAXONE SODIUM 1 GM IVP SCH ×2 (13:04→22:19)
--- NOTE | 2019-12-23 14:00 | NUR ---
U/S GD PARACENTESIS PROCEDURE PERFORMED BY DR Wenceslao HAINES. PUNCTURE SITE RUQ AND PATIENT TOLERATED PROCEDURE WELL. TOTAL REMOVED 3 LITERS OF CLOUDY YELLOW FLUID. END OF PROCEDURE AT 1345. CATHETER REMOVED AND DRESSING APPLIED. NO BLEEDING NOTED. REPORT GIVEN TO Peter PORRAS RN AND [facility] 1400. AAO X3 WITH NO C/O PAIN.
--- NOTE | 2019-12-23 14:30 | NUR ---
FRED f/u with primary nurse Sy who reported just returned from [facility]. and plan is for d/c tomorrow. FRED contacted [facility] and informed of plan for d/c tomorrow.
[2019-12-23 16:56] VITALS: BP 136/65
[2019-12-23 19:54] VITALS: BP 153/66
[2019-12-23 23:28] VITALS: BP 120/61
[2019-12-24] MEDS: HEPARIN SODIUM 5000UNIT/ML 1ML VIAL SQ SCH ×2 (02:15→15:16)
[2019-12-24 03:33] VITALS: BP 133/68
[2019-12-24 06:27] LABS: BASOPHILS % (AUTO) 0.6 % (0.0-5.0); EOSINOPHILS % (AUTO) 13.7 % (0.0-8.0); HEMATOCRIT 31.8 % (36-48); LYMPHOCYTES % (AUTO) 16.1 % (21.0-51.0); MEAN CORPUSCULAR HEMOGLOBIN 28.3 pg (27.0-33.0); MEAN CORPUSCULAR VOLUME 85.7 fL (79-99); MONOCYTES % (AUTO) 8.4 % (3.0-13.0); PLATELET COUNT (AUTO) 121 K/uL (130-400); RED BLOOD CELL COUNT(AUTO) 3.71 MIL/uL (4.00-5.50); RED CELL DISTRIBUTION WIDTH 13.2 % (11.0-15.5); WHITE BLOOD COUNT (AUTO) 6.6 K/uL (4.8-10.8)
[2019-12-24 06:43] LABS: CREATININE 5.2 mg/dL (0.5-1.5); POTASSIUM 3.5 mmol/L (3.5-5.1)
[2019-12-24] MEDS: FAMOTIDINE/PF 20 MG/2 ML VIAL IV SCH (08:38)
[2019-12-24] MEDS: FUROSEMIDE 10 MG/ML 4ML VIAL IVP SCH (08:38)
[2019-12-24 08:55] VITALS: BP 131/50
[2019-12-24] MEDS: CEFTRIAXONE SODIUM 1 GM IVP SCH (10:03)
--- NOTE | 2019-12-24 11:14 | NUR ---
OOHDNR-copy faxed to this worker by Ahmet/Christine. Copy placed in chart and CM/Shannan made aware.
--- NOTE | 2019-12-24 11:27 | NUR ---
RECEIVED CALL FROM CRYSTAL SALAZAR, PT.'S DAUGHTER, UPDATED ON PT.'S STATUS AND QUESTIONS ANSWERED, VERBALIZED UNDERSTANDING. INFORMED PT. TO BE DISCHARGED TODAY BACK TO [facility] WITH HOSPICE, VERBALIZED UNDERSTANDING.
[2019-12-24 12:15] VITALS: BP 137/59
--- NOTE | 2019-12-24 13:05 | NUR ---
TO RADAMES MUNIZ VIA GILBERTO WITH 'THE [facility] ' MD KARLY OCONNOR, RN AWARE, AND EMS FORMS FAXED TO [facility]. DORAN TO GET CHART COPIED. MED REC AND COVID FORM ALREADY FAXED TO RADAMES. Addendum: 12/24/19 at 1309 by CYNTHIA GERONIMO RN Amended: Links added.
--- NOTE | 2019-12-24 15:35 | NUR ---
REPORT GIVEN TO MARTHA GARCIA LVN AT [facility].
--- NOTE | 2019-12-24 15:53 | NUR ---
EMS TRANSPORT REQUESTED.
--- NOTE | 2019-12-24 16:20 | NUR ---
HL REMOVED, CATHETER INTACT. PT. MADE AWARE TO BE DISCHARGED BACK TO [facility], VERBALIZED UNDERSTANDING.
--- NOTE | 2019-12-24 17:35 | NUR ---
DISCHARGED VIA EMS BY STRETCHER; [facility]ONG[facility] SENT WITH PT.
--- NOTE | 2019-12-29 15:03 | NUR ---
Pt. taken out of [facility]. Call from [facility]/Paul to notify this worker that pt's family decided to take pt. out of [place] and take her home with hospice from [facility]. [facility] is following pt. at home.
== END 2019-12-24 17:30 | disposition hospice, home (50) | DRG 432 ==
LOC: EDH 14:44 → EDHIP 18:45 → 4CH 22:36
PROVIDERS: ADMIT Hospitalist; ATTEND Hospitalist
PROC: 0W9G3ZZ Drainage of Peritoneal Cavity, Percutaneous Approach (ICD-10-PCS; principal; 2019-12-23)
DX: K74.60 Unspecified cirrhosis of liver (principal); E43 Unspecified severe protein-calorie malnutrition; N18.6 End stage renal disease; N17.9 Acute kidney failure, unspecified; E87.1 Hypo-osmolality and hyponatremia; I12.0 Hypertensive chronic kidney disease with stage 5 chronic kidney disease or end stage renal disease; R18.8 Other ascites; E87.5 Hyperkalemia; E87.70 Fluid overload, unspecified; Z20.828 Contact with and (suspected) exposure to other viral communicable diseases; I25.10 Atherosclerotic heart disease of native coronary artery without angina pectoris; K21.9 Gastro-esophageal reflux disease without esophagitis; E78.5 Hyperlipidemia, unspecified; F32.9 Major depressive disorder, single episode, unspecified; M19.90 Unspecified osteoarthritis, unspecified site; R53.81 Other malaise; J44.9 Chronic obstructive pulmonary disease, unspecified; G30.9 Alzheimer's disease, unspecified; F02.80 Dementia in other diseases classified elsewhere, unspecified severity, without behavioral disturbance, psychotic disturbance, mood disturbance, and anxiety; Z66 Do not resuscitate; E11.22 Type 2 diabetes mellitus with diabetic chronic kidney disease; D64.9 Anemia, unspecified; E78.00 Pure hypercholesterolemia, unspecified; Z51.5 Encounter for palliative care; Z68.30 Body mass index [BMI] 30.0-30.9, adult; Z88.2 Allergy status to sulfonamides; Z88.1 Allergy status to other antibiotic agents; Z95.5 Presence of coronary angioplasty implant and graft; Z90.710 Acquired absence of both cervix and uterus; Z83.3 Family history of diabetes mellitus; Z82.5 Family history of asthma and other chronic lower respiratory diseases; Z82.3 Family history of stroke; Z82.0 Family history of epilepsy and other diseases of the nervous system; Z80.9 Family history of malignant neoplasm, unspecified; Z82.49 Family history of ischemic heart disease and other diseases of the circulatory system
CPT/HCPCS: 36415; 49083; 71045; 76700; 80048; 80053; 81001; 82140; 82550; 82570; 82948; 83540; 83550; 83605; 84100; 84156; 84484; 85025; 85610; 85730; 87088; 93005; 94640; 99291; A6250; G0378; J0610; J0696; J1644; J1815; J1940; J3490; J7070; U0003